=== PATIENT | male | born 1985 ===

== ENCOUNTER 2023-05-15 09:29 | Emergency (ER) | payer OTHER, SELFPAY ==
[2023-05-15 09:41] VITALS: BP 125/80; PULSE 78; RESP 19; TEMP 36.6; O2SAT 98; BMI 35.8
[2023-05-15 10:35] LABS: Anion Gap 14 (12-20); Blood Urea Nitrogen 14 mg/dL (9-16); Carbon Dioxide 25 mmol/L (22-29); Chloride 103 mmol/L (96-108); Estimated Glomerular Filt Rate > 60; Glucose Random 165 mg/dL (60-115); Potassium 3.8 mmol/L (3.3-5.1); Sodium 138 mmol/L (135-145)
--- NOTE | 2023-05-15 11:36 | ED.GENADULT ---
HPI - General Adult General Chief complaint: General Medical Stated complaint: Dizzy Weak L Arm Tingling Time Seen by Provider: 05/15/23 11:36 Source: patient Mode of arrival: ambulatory Limitations: no limitations History of Present Illness HPI narrative: 38 yo male with history of DM (A1c 6%), VERN on CPAP QHS, who presents to the ER for evaluation of lightheadedness and dizziness that started this morning. He states is it worse with position changes and he felt like he was going to pass out this morning. He also reports 1 episode of nausea and vomiting after eating his breakfast. He reports left sided ear fullness and pressure along with left sided sinus pressure today as well. He denies any fever, chills, abdominal pain, SOB or chest pain. No known sick contacts. He states about 1 week ago he developed pain in the upper left arm that has since changed to a heavy sensation. No weakness or numbness. No involvement of the LLE, or upper extremities. No headache, vision changes, gait abnormalities. MD complaint: lightheadedness Onset (ago): hour(s) Severity: moderate Pain Consistency: intermittent Relieving factors: rest Exacerbating factors: movement Associated symptoms: loss of appetite and malaise Treatments prior to arrival: none Related Data Allergies Allergy/AdvReac Type Severity Reaction Status Date / Time Penicillins [PENICILLINS] Allergy Mild UNSURE Verified 05/15/23 09:41 Review of Systems Review of Systems: Yes all other systems are reviewed and are negative [facility] Social History Social History Advance Directives: No Physical Exam ED Vital Signs: Vital Signs - 24 hr 05/15/23 09:41 05/15/23 11:42 05/15/23 11:42 Temperature 98 F Pulse Rate 78 74 78 Respiratory Rate 19 Blood Pressure 125/80 126/74 134/85 Pulse Oximetry 98 Oxygen Delivery Method Room Air 05/15/23 11:43 Temperature Pulse Rate 81 Respiratory Rate Blood Pressure 135/87 Pulse Oximetry Oxygen Delivery Method BMI result Body Mass Index 35.8 Appearance: Alert. Oriented X3. No acute distress. Head: normocephalic, atraumatic. Eyes: Pupils equal, round and reactive to light. ENT: Pharynx normal. No tonsillar swelling or exudate. Normal inspection of bilateral EAC and TMs. Neck: Normal inspection. Neck supple. CVS: Normal heart rate and rhythm. Pulses normal. Respiratory: No respiratory distress. Breath sounds normal. Abdomen: Soft and nontender. +BS x4 Skin: Skin warm and dry. Normal skin color. Normal skin turgor. No rashes. Extremities: No lower extremity edema. No joint swelling. Neuro/psych: Oriented X 3. No motor deficit. No sensory deficit. CN II-XII intact. Normal speech and cognition. Stady gait. Strength is equal and symmetrical throughout. Medical Decision Making Medical Decision Making [facility] Narrative: 38 yo diabetic male presenting with lightheadedness that started today. Has multiple other complaints as well including LUE heaviness x1 week. Neuro exam is nonfocal. Orthostatic VS negative. Lab workup, EKG all reassuring. Viral PCR negative. He reports postprandial nausea is chronic, ?gastroparesis. No evidence of acute bacterial infection. At this time comfortable w/ discharge home. he has appointment w/ endo next week. Differential Diagnosis Differential Diagnoses: The differential diagnosis associated with the presentation includes dehydration, viral illness, hyperglycemia, hypoglycemia, orthostatic hypotension, less likely TIA/CVA Lab Data [facility] Lab Attestation statement: I reviewed the patient's lab results. unremarkable 05/15/23 10:16 05/15/23 10:16 Labs: Lab Results 05/15/23 Range/Units 10:16 WBC 8.9 (4.8-10.8) X10*3/uL RBC 5.45 (4.60-5.80) X10*6/uL Hgb 15.3 (14.0-18.0) g/dl Hct 46.4 (42.0-52.0) % MCV 85.1 (80.0-98.0) fL MCH 28.1 (27.0-33.0) pg MCHC 33.0 (31.0-36.0) g/dl RDW 13.0 (11.0-16.0) % Plt Count 334 (160-400) X10*3/uL MPV 8.4 L (9.4-12.4) fL Immature Gran % (Auto) 0.2 (0.0-0.4) % Neut % (Auto) 67.1 (45-73) % Lymph % (Auto) 24.1 (20-40) % Wagoner % (Auto) 7.0 (2-11) % Eos % (Auto) 1.1 (0-4) % Baso % (Auto) 0.5 (0-2) % Lymph # (Auto) 2.1 (1.2-4.9) X10*3/uL Wagoner # (Auto) 0.6 (0.1-1.2) X10*3/uL Eos # (Auto) 0.1 (0.0-0.4) X10*3/uL Baso # (Auto) 0.0 (0.0-0.2) X10*3/uL Abs Immat Gran (auto) 0.02 (0.00-0.03) X10*3/uL Absolute Neuts (auto) 6.0 (2.0-8.3) x10*3/uL Absolute Nucleated RBC 0.000 (0.0-0.012) X10*3/uL Nucleated RBC % (auto) 0.0 (0.0-0.2) /100WBC Sodium 138 (135-145) mmol/L Potassium 3.8 (3.3-5.1) mmol/L Chloride 103 (96-108) mmol/L Carbon Dioxide 25 (22-29) mmol/L Anion Gap 14 (12-20) BUN 14 (9-16) mg/dL Creatinine 0.84 (0.5-1.4) mg/dL Estim Creat Clear Calc 135.0 Estimated GFR > 60 Random Glucose 165 H (60-115) mg/dL Calcium 10.0 (8.4-10.2) mg/dL Troponin I High Sens < 2.7 (<3.5-35.0) ng/L Influenza Type A (PCR) NEGATIVE (Negative) Influenza Type B (PCR) NEGATIVE (Negative) RSV RNA Qual (PCR) NEGATIVE (Negative) SARS-CoV-2 RNA (RT-PCR) NEGATIVE (Negative) Independent Interpretation I performed an independent interpretation of an: EKG Interpretation: EKG with normal sinus rhythm, ventricular rate 85 beats per minute, normal QTC, normal AK interval, no ST segment elevations or depressions Independent Historian Clinical information obtained from an independent historian. History obtained from or confirmed by: Spouse Chronic Conditions Patient?s care impacted by: Diabetes Critical Care Time Critical Care Time Critical Care Time: No Discharge Plan Discharge Clinical Impression: Lightheadedness Patient Disposition: Home, Self-Care Instructions: Lightheadedness (ED) Additional Instructions: Your lab workup today was reassuring You tested negative for COVID, Flu and RSV Your EKG and vital signs were normal Your exam was normal You may be starting to come down with a viral illness. Recommend rest, drink plenty of fluids. When changing positions, do so slowly. Follow up with your doctor and Endocrine as scheduled. If you develop new or worsening symptoms call 911 or come back to the ER for further evaluation. Referrals: Marilu Hinton MD [Primary Care Provider] - Stand Alone Forms: Work/School Release Interventions: ED Discharge Assessment Last Done: 05/15/23 12:24 Discharge Date/Time: 05/15/23 12:24
[2023-05-15 11:42] VITALS: BP 126/74; BP 134/85; PULSE 74; PULSE 78
[2023-05-15 11:43] VITALS: BP 135/87; PULSE 81
== END 2023-05-15 12:24 | disposition home or self-care (01) ==
PROVIDERS: Emergency Provider Emergency Medicine Emergency Medical Services; PCP Internal Medicine
DX: R42 Dizziness and giddiness (principal); G47.33 Obstructive sleep apnea (adult) (pediatric); Z20.822 Contact with and (suspected) exposure to COVID-19; Z20.828 Contact with and (suspected) exposure to other viral communicable diseases; Z79.899 Other long term (current) drug therapy
CPT/HCPCS: 0241U; 36415; 80048; 84484; 85025; 93005; 99283

== ENCOUNTER 2023-05-21 10:46 | Outpatient (AMB) | payer OTHER, SELFPAY ==
[2023-05-21 10:49] VITALS: BMI 36.2
--- NOTE | 2023-05-21 10:49 | MHC.PC.OV ---
Vital Signs 05/21/23 10:49 Height 5 ft 6 in Weight 224 lb 4 oz BMI 36.2 Intake Visit Reasons: [employer]-DM Intake Note: Patient is a new patient here to establish care for DM, sleep apnea, obesity. Transferring care from [facility]. Medical records have been requested today. 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 Patient has a past medical history significant for type 2 diabetes, Sleep apnea, seasonal allergies. Previous PCP was in [place] Was recently seen at the [facility] for lightheadedness and nausea. He did report having some presyncopal episodes. Workup with EKG and labs, viral serology were unremarkable. He does report having GI issues with abdominal bloating and gas. Does report intermittent right upper quadrant abdominal pain. .. Chronic allergies: Continues to use [id number] allergy medication and nasal sprays much relief. He feels he has an inner ear issue. Was on allergy injections in the past and was doing well. Has lost follow-up with his ENT specialist and stop doing injections. Type 2 diabetes: Patient continues on metformin a 1000 b.i.d. from previous PCP. Today's A1c is 7.2. He does report not taking metformin at times as he feels he does not needed. He reports trying to eat much more healthy. PLAN: He is willing to start Ozempic weekly . Vaccine: UTD with Flu , UTD with COVID vaccine. [facility] Family History Father No problems noted. Mother Asthma Fibromyalgia Anxiety and depression Social History (Updated 05/21/23 @ 11:15 by Juancarlos Meyer PA-C) Housing: House Alcohol intake: current Alcohol intake frequency: holidays/special occasions only Patient Tobacco Use Status: Never used Tobacco e-Cigarette/Vaping Use: Never Used service: No Current occupational status: employed Current occupation: [employer] Cognitive needs: No Hearing needs: No Vision needs: No Questionnaire PHQ-9 Over the last 2 weeks, how often have you been bothered by any of the following problems? 1. Little interest or pleasure in doing things: several days 2. Feeling down, depressed, or hopeless: several days 3. Trouble falling or staying asleep, or sleeping too much: nearly every day 4. Feeling tired or having little energy: nearly every day 5. Poor appetite or overeating: nearly every day 6. Feeling bad about yourself - or that you are a failure or have let yourself or your family down: nearly every day 7. Trouble concentrating on things, such as reading the newspaper or watching television: not at all 8. Moving or speaking so slowly that other people could have noticed. Or the opposite - being so fidgety or restless that you have been moving around a lot more than usual: more than half the days 9. Thoughts that you would be better off or of hurting yourself in some way: not at all Total score: 16 Depression Screening Interpretation: Positive Depression Screening Follow-up: Existing condition Depression Screening Done: Yes 29152 - PHQ-9 Billing: Yes Source: Developed by Drs. Neville Augustin, Iram Hillman, Josiah Rodriguez and colleagues, with an educational ysabel from [employer]. Thrive Questionnaire Date Thrive assessed: 05/21/23 I am a: Patient What is your living situation today?: I have a steady place to live Within the past 12 months, did the food you bought not last and you didn't have the money to get more?: Never true Within the past 12 months, did you worry whether your food would run out before you got money to buy more?: Never true Do you have trouble paying for medicines?: No Do you have trouble getting transportation to medical appointments?: No Do you have trouble paying your heating and electricity bill?: No Do you have trouble taking care of your child, family member or friend?: No Do you have trouble with day-to-day activities such as bathing, preparing meals, shopping, managing finances, etc.?: No Are you currently unemployed and looking for a job?: No Are you interested in more education?: No Please select the resources that you would like help with: None Currently or been in a relationship where the following occur: no concerns reported AUDIT C Alcohol Use Questionnaire (AUDIT-C) 1. How often do you have a drink containing alcohol?: Monthly or less 2. How many drinks containing alcohol do you have on a typical day when you are drinking?: 5 or 6 3. How often do you have six or more drinks on one occasion?: Less than monthly Total Score: 4 RENAY-7 AMB Questionnaire RENAY-7 Date RENAY - 7 assessed: 05/21/23 Feeling nervous, anxious, or on edge: 3 = Nearly every day Not being able to stop or control worryin = Nearly every day Worrying too much about different things: 3 = Nearly every day Trouble relaxin = Not at all Being so restless that it is hard to sit still: 3 = Nearly every day Becoming easily annoyed or irritable: 2 = More than half the days Feeling afraid as if something awful might happen: 1 = Several days Total RENAY-7 score (0-4 normal; 5-9 mild; 10-14 moderate; 15-21 severe): 15 Source: Developed by Drs. Neville Augustin, Iram Hillman, Josiah Rodriguez and colleagues, with an educational ysabel from [employer]. RENAY-7 Assessment Billing RENAY-7 Assessment Tool: RENAY-7 Assessment 28997 Review of Systems Const Denies headache(s) Eyes Denies loss of vision ENT Denies vertigo, Denies dizziness, Denies headache(s) and Denies sore throat Card Denies chest pain, Denies leg edema and Denies lightheadedness Resp Denies cough, Denies hemoptysis and Denies wheezing GI Denies abdominal pain, Denies melena, Denies constipation, Denies diarrhea and Denies vomiting Denies dysuria, Denies urinary frequency and Denies urinary urgency Musc Denies arthralgias, Denies joint swelling, Denies numbness and Denies tingling Neuro Denies Abnormal speech present, Denies behavioral changes, Denies vertigo, Denies dizziness, Denies headache(s), Denies loss of vision, Denies memory loss, Denies numbness and Denies tingling Psych Denies anxiety, Denies behavioral changes, Denies depression, Denies memory loss and Denies panic attacks Quirino/Lymph Denies easy bleeding and Denies easy bruising Aller/Immun Denies wheezing Physical exam (Primary Care) BMI result Body Mass Index 36.2 Tobacco/Smoking Status: Tobacco use Status Tobacco use date assessed 05/21/23 05/21/23 11:05 Patient Tobacco Use Status Never used Tobacco 05/21/23 11:15 e-Cigarette/Vaping Use Never Used 05/21/23 11:15 PHQ-9: PHQ-9 Score PHQ-9: Total score 16 05/21/23 11:52 Depression Screening Interpretation: Positive Depression Screening Follow-up: Existing condition Thrive Assessment: Date of Thrive Assessment Date Thrive assessed 05/21/23 05/21/23 10:56 Currently or been in a relationship where the following occur: no concerns reported Const General: healthy appearing, no acute distress, alert and awake Nutritional Appearance: well nourished Orientation/consciousness: oriented to person, oriented to place and oriented to time HENMT Ears: TM's normal bilaterally General nose exam: Normal nasal mucous membranes and turbinates present Eyes Conjunctivae: conjunctivae normal Sclerae: sclerae normal Pupils: Equal, round and reactive pupils present Neck Neck: Yes no lymphadenopathy and Yes no JVD Thyroid: Thyroid normal Carotids: no bruits Resp Effort & Inspection: normal respiratory effort and not tachypneic Auscultation: no crackles, no rales, no rhonchi and no wheezes Cardio Rate: regular rate Rhythm: regular rhythm Heart sounds: no murmurs and normal S1 and S2 GI Palpation (GI): Soft to palpation, nontender, no hepatomegaly and no splenomegaly Auscultation: normal bowel sounds Skin General skin exam: no rashes or lesions noted and dry skin Neuro General: oriented to person, oriented to place and oriented to time Cranial nerves: Yes Equal, round and reactive pupils present Speech: No Abnormal speech present Gait exam (Neuro): Normal gait present Motor exam (neuro): no tremor noted Extrem Right upper extremity: full ROM Left upper extremity: full ROM Right lower extremity: full ROM; no edema Left lower extremity: full ROM; no edema Psych Mental Status: mental status grossly normal Speech and movement: Normal speech and movement present Affect: normal affect Attitude: cooperative Thought process: Normal thought process present Office Procedures Flu Questionnaire Does the patient have a severe egg allergy?: No Does the patient have severe life threatening allergies?: No Does the patient have a fever or illness today?: No Has the patient ever had Guillain-Sidney Syndrome?: No Has the patient ever had any past reaction to a flu shot?: No Results AMB Hemoglobin A1c AMB Hemoglobin A1c 7.2 % Last Edit by ROSCOE Hay on 05/21/23 11:19 Immunizations flu vacc [id number] 6mos up(PF) 60 mcg(15 mcgx4)/0.5 mL IM syringe Performing Provider: Juancarlos Meyer PA-C [facility] Administered by: ROSCOE Hay on 05/21/23 11:11 Dose Route Admin Location Dispensed Lot Number Expiration Date NDC Outreach Clinician 0.5 mL IM Left Deltoid 0.5 mL [id number] 02/02/24 22025-198-37 Nabto VIS Given Date VIS Provided VIS Publication Date 05/21/23 Single Vaccine 21 Eligibility Eligibility Date Funding Source Not VFC Eligible 05/21/23 Private Results Reviewed Results Reviewed: Laboratory Last Values Hgb A1c (Clinic) 7.2 % (4.0-6.0) H 05/21/23 11:12 Assessment and Plan Assessment & Plan (1) Type 2 diabetes mellitus: Code(s): E11.9 - Type 2 diabetes mellitus without complications Qualifiers: Diabetes mellitus complication status: with hyperglycemia Diabetes mellitus watermelon inspector insulin use: without halfway use Qualified Code(s): E11.65 - Type 2 diabetes mellitus with hyperglycemia Plan: Patient's type 2 diabetes suboptimally controlled with A1c today is 7.2. He is willing to transition to Ozempic weekly. He feels metformin may be causing him some side effect. Goal A1c is to be below 7.0 (2) Obese: Code(s): E66.9 - Obesity, unspecified Qualifiers: Body mass index: BMI 36.0-36.9 Obesity classification: adult class 2 (BMI 35 - 39.9) Obesity type: due to excess calories Serious obesity comorbidity presence: without serious comorbidity Qualified Code(s): E66.09 - Other obesity due to excess calories; Z68.36 - Body mass index [BMI] 36.0-36.9, adult Plan: Patient does understand his BMI is over 30 will work on being more physically active and adapting to better eating habits to reduce his weight. (3) Allergic rhinitis: Code(s): J30.9 - Allergic rhinitis, unspecified Qualifiers: Allergic rhinitis seasonality: unspecified Allergic rhinitis trigger: other Qualified Code(s): J30.89 - Other allergic rhinitis Plan: Patient reports often having signs symptoms of allergies. He reports his left ear often feels clogged. He was on allergy injections in the past through an ENT specialist. He would like to reestablish care with ENT specialty. Will restart him on allergy medication daily for his symptoms. (4) Eustachian tube disorder: Code(s): H69.90 - Unspecified Eustachian tube disorder, unspecified ear Qualifiers: Laterality: left Qualified Code(s): H69.92 - Unspecified Eustachian tube disorder, left ear (5) RUQ abdominal pain: Code(s): R10.11 - Right upper quadrant pain Plan: Reports intermittent right upper quadrant and epigastric pain. Does often feel bloated and has gas. Has been using vjld-dwa-rlzconi gas medication. Will supply patient with PPI therapy as his symptoms could be from gastritis. Will send for ultrasound of abdomen to evaluate his gallbladder. (6) Thoracic spine pain: Code(s): M54.6 - Pain in thoracic spine Plan: Reports having some right upper flank and thoracic spine pain. Attributes this to his work at times. Will get x-ray of thoracic spine to evaluate for any arthritis. (7) MDD (major depressive disorder), recurrent episode, moderate: Code(s): F33.1 - Major depressive disorder, recurrent, moderate Plan: Patient's PHQ-9 score positive for moderate depression. Did not formally discuss depression at today's visit. Will have office reach out and ask if he is interested in mental health therapy. (8) RENAY (generalized anxiety disorder): Code(s): F41.1 - Generalized anxiety disorder Plan: Patient's RENAY-7 score positive for moderate anxiety. Orders: Orders Influenza [id number] Immunization Today Z23 - Encounter for immunization Comprehensive [place]. Panel Fast Today E11.65 - Type 2 diabetes mellitus with hyperglycemia AMB Hemoglobin A1c 05/20/23 Z13.1 - Encounter for screening for diabetes mellitus Complete Blood Count no Diff Today E11.65 - Type 2 diabetes mellitus with hyperglycemia Lipid Panel Today E11.65 - Type 2 diabetes mellitus with hyperglycemia US abdomen complete Today R10.11 - Right upper quadrant pain XR thoracic spine 2V Today M54.6 - Pain in thoracic spine Referrals Ear/Nose/Throat Referral J30.89 - Other allergic rhinitis Medications: New semaglutide (Ozempic) for 4 weeks 0.25 mg (0.368 mL) subcut QWEEK 4 weeks 3 mL 1RF E11.65 - Type 2 diabetes mellitus with hyperglycemia omeprazole 20 mg PO DAILY 30 days 30 caps 2RF K21.9 - Gastro-esophageal reflux disease without esophagitis, R10.11 - Right upper quadrant pain montelukast (Singulair) 10 mg PO DAILY 90 days 90 tabs 1RF J30.89 - Other allergic rhinitis Coding Level of Care Code New Pt Level 4 (51392) Diagnoses Type 2 diabetes mellitus with hyperglycemia, without long-term current use of insulin E11.65 Diabetes mellitus complication status: with hyperglycemia Diabetes mellitus watermelon inspector insulin use: without halfway use Class 2 obesity due to excess calories without serious comorbidity with body mass index (BMI) of 36.0 to 36.9 in adult E66.09; Z68.36 Body mass index: BMI 36.0-36.9 Obesity classification: adult class 2 (BMI 35 - 39.9) Obesity type: due to excess calories Serious obesity comorbidity presence: without serious comorbidity Allergic rhinitis due to other allergic trigger, unspecified seasonality J30.89 Allergic rhinitis seasonality: unspecified Allergic rhinitis trigger: other Disorder of left eustachian tube H69.92 Laterality: left RUQ abdominal pain R10.11 Thoracic spine pain M54.6 MDD (major depressive disorder), recurrent episode, moderate F33.1 RENAY (generalized anxiety disorder) F41.1 Additional Codes RENAY-7 Assessment Billing - RENAY-7 Assessment Tool: RENAY-7 Assessment [id number] ([id number])
== END 2023-05-21 11:41 | disposition home or self-care (01) ==
PROVIDERS: PCP Physician Assistant; Visit Provider Physician Assistant
DX: E11.65 Type 2 diabetes mellitus with hyperglycemia (principal); F33.1 Major depressive disorder, recurrent, moderate; E66.09 Other obesity due to excess calories; Z68.36 Body mass index [BMI] 36.0-36.9, adult; Z23 Encounter for immunization; J30.89 Other allergic rhinitis; H69.92 Unspecified Eustachian tube disorder, left ear; R10.11 Right upper quadrant pain; M54.6 Pain in thoracic spine; F41.1 Generalized anxiety disorder
CPT/HCPCS: 83036; 90471; 90686; 96127; 99204

== ENCOUNTER 2023-05-23 08:43 | Outpatient (REF) | payer OTHER, SELFPAY ==
--- NOTE | ~2023-05-23 | XR_ITS ---
EXAMINATION: XR THORACOLUMBAR SPINE CLINICAL INFORMATION: Pain in thoracic spine, mid thoracic spine pain COMPARISON: None available. TECHNIQUE: 3 views of the thoracic spine. Visualization limited due to body habitus. FINDINGS: Mild multilevel degenerative changes in the thoracic spine. No gross thoracic vertebral body compression fractures are visualized, although visualization particularly of the upper thoracic spine, limited due to body habitus. Degenerative changes on very limited imaging of the lower cervical spine. XR/XR thoracic spine 2V IMPRESSION: Mild multilevel degenerative changes in the thoracic spine. No gross thoracic vertebral body compression fractures are visualized, although visualization particularly of the upper thoracic spine, limited due to body habitus.
== END 2023-05-23 08:44 | disposition home or self-care (01) ==
LOC: HO.XRAY 08:43
PROVIDERS: PCP Physician Assistant; Visit Provider Physician Assistant
DX: M54.6 Pain in thoracic spine (principal)
CPT/HCPCS: 72070

== ENCOUNTER 2023-06-18 08:58 | Outpatient (REF) | payer OTHER, SELFPAY ==
--- NOTE | ~2023-06-18 | US_ITS ---
EXAMINATION: US ABDOMEN COMPLETE CLINICAL INFORMATION: Right upper quadrant pain. COMPARISON: None available. TECHNIQUE: Real-time imaging of the abdominal viscera. FINDINGS: PANCREAS: Pancreatic head and tail are poorly seen, but ABDOMINAL AORTA: Proximal and distal aorta are unremarkable. Mid aorta is obscured. INFERIOR VENA CAVA: Visualized portions are normal. LIVER: The liver is normal in size. The liver contour is normal. Diffuse increased echogenicity to the liver parenchyma with focal fatty sparing along the gallbladder fossa. No focal hepatic lesion. There is no intrahepatic biliary duct dilatation seen. GALLBLADDER: The gallbladder is physiologically distended without evidence of stones, sludge, wall thickening or pericholecystic fluid. 0.4 x 0.5 x 0.4 cm nonmobile, nonshadowing gallbladder wall echogenicity identified within the gallbladder lumen on supine imaging. COMMON BILE DUCT: Normal in caliber measuring 0.4 cm in diameter. RIGHT KIDNEY: Normal. No hydronephrosis. No renal calculi or focal parenchymal lesions. The kidney measures 11.2 cm in maximum dimension. LEFT KIDNEY: No hydronephrosis. No renal calculi or focal parenchymal lesions. The kidney measures 11.5 cm in maximum dimension. Hyperechoic focus lower pole likely calcified vessel. SPLEEN: Normal. The spleen measures 11.1 cm in maximum dimension. 10.2 x 1.2 x 1.7 cm splenule. FREE FLUID: None. US/US abdomen complete IMPRESSION: Study limitations including pancreas and aorta. Should either or both be of clinical concern, consider other imaging modality such as CT. Hepatic steatosis. 5 mm gallbladder polyp.
== END 2023-06-18 08:59 | disposition home or self-care (01) ==
LOC: HO.US 08:58
PROVIDERS: PCP Physician Assistant; Visit Provider Physician Assistant
DX: R10.11 Right upper quadrant pain (principal)
CPT/HCPCS: 76700

== ENCOUNTER 2023-06-25 15:15 | Outpatient (AMB) | payer OTHER, SELFPAY ==
--- NOTE | 2023-06-25 15:18 | MHC.OFFVIS ---
Intake Vital Signs 06/25/23 15:26 Height 5 ft 6 in Weight 220 lb BMI 35.5 BP 136/87 Blood Pressure Location Rt brachial Position Sitting Pulse 87 Intake Visit Reasons: RUQ pain Intake Note: Patient here for pain on RUQ. Feels pressure when sitting down with certain positions. Denies vomiting, diarrhea, constipation. Recent Abd US on 06-18-23. Taking otc pain meds. 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 Patient presents with a longstanding history of dyspeptic symptoms. This consisted epigastric upper abdominal discomfort sometimes related to diet. He sometimes has associated nausea vomiting with his attacks. He does not have right upper quadrant pain radiating around to his back per se. He does not acknowledge any true fatty food intolerance. Workup including sonogram demonstrated a single gallbladder polyp 5 mm in size. No cholelithiasis. No evidence of acute cholecystitis. Otherwise regular bowel habits. No other significant lower GI issues or complaints. Chart was reviewed patient evaluated. [facility] Family History Father No problems noted. Mother Asthma Fibromyalgia Anxiety and depression Housing: House Alcohol intake: current Alcohol intake frequency: holidays/special occasions only Patient Tobacco Use Status: Never used Tobacco e-Cigarette/Vaping Use: Never Used service: No Current occupational status: employed Current occupation: [employer] Cognitive needs: No Hearing needs: No Vision needs: No Physical Exam Vital Signs: Last Vital Signs Pulse 87 06/25/23 15:26 BP 136/87 06/25/23 15:26 BMI result Body Mass Index 35.5 Eyes Other: Anicteric GI Other: Abdomen soft, corpulent, benign. Assessment & Plan Assessment & Plan (1) Gallbladder polyp: Code(s): K82.4 - Cholesterolosis of gallbladder Plan: From a surgical perspective, this isolated small gallbladder polyp is unlikely root causing the patient's symptoms. In the meantime, I will arrange for 6 month surveillance sonogram for a polyp. Patient also be scheduled for for GI consultation regarding his chronic dyspepsia. All questions were. Patient will follow-up with me as directed above or p.r.n.. Orders: Orders US abdomen limited 6 Months K82.4 - Cholesterolosis of gallbladder Coding Level of Care Code New Pt Level 4 (21709) Diagnoses Gallbladder polyp K82.4
[2023-06-25 15:26] VITALS: BP 136/87; PULSE 87; BMI 35.5
== END 2023-06-25 15:35 | disposition home or self-care (01) ==
PROVIDERS: PCP Physician Assistant; Referring Provider Physician Assistant; Visit Provider Surgery
DX: K82.4 Cholesterolosis of gallbladder (principal)
CPT/HCPCS: 99204

== ENCOUNTER → 2023-06-25 15:15 | Outpatient (BNVA) | payer OTHER, SELFPAY | PROVIDERS: PCP Physician Assistant; Referring Provider Physician Assistant; Visit Provider Surgery ==

== ENCOUNTER 2023-08-21 09:28 | Outpatient (AMB) | payer OTHER, SELFPAY ==
[2023-08-21 09:54] VITALS: BP 114/82; PULSE 68; O2SAT 96; BMI 35.7
--- NOTE | 2023-08-21 09:54 | MHC.PC.OV ---
Vital Signs 08/21/23 09:54 Height 5 ft 6 in Weight 221 lb 6 oz BMI 35.7 BP 114/82 Blood Pressure Location Lt brachial Position Sitting Pulse 68 Pulse Source Pulse Oximeter Pulse Oximetry (%) 96 Oxygen Delivery Method Room Air Intake Visit Reasons: Annual Exam Intake Note: Patient is here today for a physical. 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 Patient has a past medical history significant for type 2 diabetes, Sleep apnea, seasonal allergies. Concern--> has developed a rash over the left side of his neck. Chronic abdominal pain/ dyspepsia: Has gotten ultrasound of abdomen that did show a 5 mm gallbladder polyp. He was then referred to general surgeon whom does not believe that this is causing his abdominal pain. He was advised to follow with GI for his dyspepsia. He does report that omeprazole is helpful on his upper GI symptoms. .. Chronic allergies: Continues to use [id number] allergy medication and nasal sprays much relief. He feels he has an inner ear issue. He has reestablish care with his ENT and has been started back on allergy injections. Of note does have obstructive sleep apnea and does use a CPAP machine on a nightly basis. He has been told his tonsils were enlarged which may be the cause of some of his obstructive sleep apnea. He is interested in ENT surgeon evaluation for possible elective tonsillectomy. .. Type 2 diabetes: Today's A1c is 7.1 from 7.2. He has been on Ozempic 0.25 mg weekly. PLAN: Will increase to 0.5 mg weekly.. He does report not taking metformin at times as he feels he does not needed. He reports trying to eat much more healthy. Vaccine: UTD with Flu , UTD with COVID vaccine,recieved Tdap in 2020, needs PCV. [facility] Family History Father No problems noted. Mother Asthma Fibromyalgia Anxiety and depression Social History (Updated 08/21/23 @ 10:05 by Juancarlos Meyer PA-C) Housing: House Alcohol intake: current Alcohol intake frequency: holidays/special occasions only Patient Tobacco Use Status: Never used Tobacco e-Cigarette/Vaping Use: Never Used service: No Current occupational status: employed Current occupation: [employer] Cognitive needs: No Hearing needs: No Vision needs: No Questionnaire PHQ-9 Over the last 2 weeks, how often have you been bothered by any of the following problems? 1. Little interest or pleasure in doing things: not at all 2. Feeling down, depressed, or hopeless: not at all 3. Trouble falling or staying asleep, or sleeping too much: not at all 4. Feeling tired or having little energy: not at all 5. Poor appetite or overeating: not at all 6. Feeling bad about yourself - or that you are a failure or have let yourself or your family down: not at all 7. Trouble concentrating on things, such as reading the newspaper or watching television: not at all 8. Moving or speaking so slowly that other people could have noticed. Or the opposite - being so fidgety or restless that you have been moving around a lot more than usual: not at all 9. Thoughts that you would be better off or of hurting yourself in some way: not at all Total score: 0 Depression Screening Interpretation: Negative Depression Screening Done: Yes 40328 - PHQ-9 Billing: Yes Source: Developed by Drs. Neville Augustin, Iram Hillman, Josiah Rodriguez and colleagues, with an educational ysabel from [employer]. Thrive Questionnaire Date Thrive assessed: 08/21/23 I am a: Patient What is your living situation today?: I have a steady place to live Within the past 12 months, did the food you bought not last and you didn't have the money to get more?: Never true Within the past 12 months, did you worry whether your food would run out before you got money to buy more?: Never true Do you have trouble paying for medicines?: No Do you have trouble getting transportation to medical appointments?: No Do you have trouble paying your heating and electricity bill?: No Do you have trouble taking care of your child, family member or friend?: No Do you have trouble with day-to-day activities such as bathing, preparing meals, shopping, managing finances, etc.?: No Are you currently unemployed and looking for a job?: No Are you interested in more education?: No Please select the resources that you would like help with: None AUDIT C Alcohol Use Questionnaire (AUDIT-C) 1. How often do you have a drink containing alcohol?: Monthly or less 2. How many drinks containing alcohol do you have on a typical day when you are drinking?: 1 or 2 3. How often do you have six or more drinks on one occasion?: Never Total Score: 1 RENAY-7 AMB Questionnaire RENAY-7 Date RENAY - 7 assessed: 08/21/23 Feeling nervous, anxious, or on edge: 0 = Not at all Not being able to stop or control worryin = Not at all Worrying too much about different things: 0 = Not at all Trouble relaxin = Not at all Being so restless that it is hard to sit still: 0 = Not at all Becoming easily annoyed or irritable: 0 = Not at all Feeling afraid as if something awful might happen: 0 = Not at all Total RENAY-7 score (0-4 normal; 5-9 mild; 10-14 moderate; 15-21 severe): 0 Source: Developed by Drs. Neville Augustin, Iram Hillman, Josiah Rodriguez and colleagues, with an educational ysabel from [employer]. RENAY-7 Assessment Billing RENAY-7 Assessment Tool: RENAY-7 Assessment 25732 Review of Systems Const Denies body aches, Denies chills, Denies excessive sweating, Denies fatigue, Denies fever(s) and Denies headache(s) Eyes Denies blurry vision ENT Denies dysphagia, Denies vertigo, Denies dizziness, Denies headache(s), Denies hearing loss and Denies tinnitus Card Denies chest pain, Denies chest pain with activity, Denies syncope, Denies irregular heart rhythm and Denies dyspnea Resp Denies chest congestion, Denies cough, Denies hemoptysis, Denies dyspnea and Denies wheezing GI Denies abdominal pain, Denies melena, Denies hematochezia, Denies coffee ground emesis, Denies dysphagia, Denies diarrhea, Denies nausea and Denies vomiting Denies difficulty urinating, Denies dysuria, Denies urinary frequency, Denies urinary hesitancy and Denies urinary urgency Musc Denies arthralgias, Denies limited range of motion, Denies muscle cramps and Denies muscle weakness Skin/Breast Denies rash and Denies skin ulcer Neuro Denies Abnormal speech present, Denies confusion, Denies vertigo, Denies dizziness, Denies syncope, Denies headache(s), Denies memory loss and Denies seizure-like activity Psych Denies anxiety, Denies confusion, Denies depression, Denies memory loss, Denies panic attacks and Denies paranoia Endo Denies excessive sweating, Denies fatigue, Denies flushing, Denies polydipsia and Denies polyuria Aller/Immun Denies wheezing Physical exam (Primary Care) Vital Signs: Last Vital Signs Pulse 68 08/21/23 09:54 BP 114/82 08/21/23 09:54 Pulse Ox 96 08/21/23 09:54 Oxygen Delivery Method Room Air 08/21/23 09:54 BMI result Body Mass Index 35.7 BMI Assessment/Plan discussion: High Tobacco/Smoking Status: Tobacco use Status Tobacco use date assessed 05/21/23 08/21/23 09:58 Patient Tobacco Use Status Never used Tobacco 08/21/23 10:05 e-Cigarette/Vaping Use Never Used 08/21/23 10:05 PHQ-9: PHQ-9 Score PHQ-9: Total score 0 08/21/23 11:23 Depression Screening Interpretation: Negative Thrive Assessment: Date of Thrive Assessment Date Thrive assessed 08/21/23 08/21/23 09:58 Const Other: Obese General: cooperative, comfortable, no acute distress, alert and awake; No confusion Orientation/consciousness: oriented to person, oriented to place, patient oriented x3 and No confusion HENMT Head: Yes normocephalic Ears: external ears normal and TM's normal bilaterally Face and sinus: No sinus tenderness Mouth: Normal oral and palatal mucosa present and tongue normal Teeth and gingiva: dentition normal and gingiva normal Throat: Yes posterior oropharynx normal, Yes tonsils normal and Yes uvula midline Eyes Conjunctivae: conjunctivae normal Sclerae: sclerae normal Pupils: Equal, round and reactive pupils present EOM: EOMs intact bilaterally Direct Ophthalmoscopy: No no photophobia Neck Neck: Yes no lymphadenopathy, No tender and Yes no JVD Thyroid: Thyroid normal Carotids: no bruits Chest Chest palpation & inspection: no tenderness Resp Effort & Inspection: normal respiratory effort, no audible wheezes, not labored and no stridor Auscultation: no crackles, no rales, no rhonchi and no wheezes Cardio Jugular venous distension: no JVD Rate: regular rate, not bradycardic and not tachycardic Rhythm: regular rhythm Bruits: no carotid bruits Peripheral pulses: Peripheral pulses 2+ throughout GI Inspection: Yes normal to inspection, No abdominal wall ecchymosis and No visible herniation Palpation (GI): Soft to palpation, nontender, no guarding, not rigid and No hepatosplenomegaly present Auscultation: normoactive bowel sounds General: Yes no CVA tenderness Back/Spine/Pelvis Back: no CVA tenderness and No back tenderness Cervical Spine: cervical ROM normal Thoracic/Lumbar Spine: thoracic and lumbar spine normal to inspection, straight leg raise negative bilaterally, No thoraco-lumbar ROM limited and No lumbar spinal tenderness Skin Lesions: no lesions Rashes: no rashes Wounds: no wounds Neuro General: oriented to person, oriented to place, patient oriented x3, CN's II-XI intact bilaterally and No confusion Cranial nerves: Yes Equal, round and reactive pupils present and Yes Normal accommodation reflex present Cognition (Neuro): normal cognition Speech: No Abnormal speech present Gait exam (Neuro): Normal gait present Motor exam (neuro): 5/5 motor strength present throughout Extrem Right upper extremity: full ROM; no cyanosis Left upper extremity: full ROM; no cyanosis Right lower extremity: no edema Left lower extremity: no edema Psych Appearance: grossly normal Mental Status: mental status grossly normal Affect: normal affect Attitude: cooperative Thought process: Normal thought process present Results AMB Hemoglobin A1c AMB Hemoglobin A1c 7.1 % Last Edit by ROSCOE Hay on 08/21/23 11:23 Results Reviewed Results Reviewed: Laboratory Last Values Hgb A1c (Clinic) 7.1 % (4.0-6.0) H 08/21/23 11:23 Assessment and Plan Assessment & Plan (1) Annual physical exam: Code(s): Z00.00 - Encounter for general adult medical examination without abnormal findings (2) Type 2 diabetes mellitus: Code(s): E11.9 - Type 2 diabetes mellitus without complications Qualifiers: Diabetes mellitus complication status: with hyperglycemia Diabetes mellitus intermediate insulin use: without 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 Will increase his Ozempic to 0.5 mg weekly. Will consider restarting low-dose metformin if A1c remains above 7.0 Goal A1c is to be below 7.0 (3) Obese: Code(s): E66.9 - Obesity, unspecified Qualifiers: Body mass index: BMI 36.0-36.9 Obesity classification: adult class 2 (BMI 35 - 39.9) Obesity type: due to excess calories Serious obesity comorbidity presence: without serious comorbidity Qualified Code(s): E66.09 - Other obesity due to excess calories; Z68.36 - Body mass index [BMI] 36.0-36.9, adult Plan: Patient does understand his BMI is over 30 will work on being more physically active and adapting to better eating habits to reduce his weight. (4) Allergic rhinitis: Code(s): J30.9 - Allergic rhinitis, unspecified Qualifiers: Allergic rhinitis seasonality: unspecified Allergic rhinitis trigger: other Qualified Code(s): J30.89 - Other allergic rhinitis Plan: Patient reports often having signs symptoms of allergies. He has restarted his allergy injections this week. (5) MDD (major depressive disorder), recurrent episode, moderate: Code(s): F33.1 - Major depressive disorder, recurrent, moderate Plan: Patient's PHQ-9 - 0 not interested in starting mental health medications. (6) RENAY (generalized anxiety disorder): Code(s): F41.1 - Generalized anxiety disorder Plan: Patient's RENAY-7 0 - Does have history of generalized anxiety disorder. Not interested in starting any medications at this time. (7) Acute dermatitis: Code(s): L30.9 - Dermatitis, unspecified Plan: Will supply patient with topical steroid for his acute dermatitis on his neck. (8) Enlarged tonsils: Code(s): J35.1 - Hypertrophy of tonsils Plan: Does have quite a large tonsils on physical exam. Does have obstructive sleep apnea to which he uses a CPAP machine on a nightly basis. He would like to be evaluated by ENT surgeon about a possible elective tonsillectomy to help his obstructive sleep apnea. Orders: Orders AMB Hemoglobin A1c Today E11.9 - Type 2 diabetes mellitus without complications Referrals Ear/Nose/Throat Referral J35.1 - Hypertrophy of tonsils Medications: New triamcinolone acetonide 0.5% 1 appl topical DAILY 15 days 15 grams 1RF L30.9 - Dermatitis, unspecified Changed From semaglutide (Ozempic) for 4 weeks 0.25 mg (0.368 mL) subcut QWEEK 4 weeks 3 mL 1RF E11.65 - Type 2 diabetes mellitus with hyperglycemia To semaglutide (Ozempic) 0.5 mg (0.736 mL) subcut QWEEK 4 weeks 3 mL 3RF E11.65 - Type 2 diabetes mellitus with hyperglycemia Coding Level of Care Code Est Pt Prev Care [id number]([id number]) Diagnoses Annual physical exam Z00.00 Type 2 diabetes mellitus with hyperglycemia, without long-term current use of insulin E11.65 Diabetes mellitus complication status: with hyperglycemia Diabetes mellitus lithograph press operator insulin use: without intermediate use Class 2 obesity due to excess calories without serious comorbidity with body mass index (BMI) of 36.0 to 36.9 in adult E66.09; Z68.36 Body mass index: BMI 36.0-36.9 Obesity classification: adult class 2 (BMI 35 - 39.9) Obesity type: due to excess calories Serious obesity comorbidity presence: without serious comorbidity Allergic rhinitis due to other allergic trigger, unspecified seasonality J30.89 Allergic rhinitis seasonality: unspecified Allergic rhinitis trigger: other MDD (major depressive disorder), recurrent episode, moderate F33.1 RENAY (generalized anxiety disorder) F41.1 Acute dermatitis L30.9 Enlarged tonsils J35.1 Additional Codes RENAY-7 Assessment Billing - RENAY-7 Assessment Tool: RENAY-7 Assessment [id number] ([id number])
== END 2023-08-21 10:26 | disposition home or self-care (01) ==
PROVIDERS: PCP Physician Assistant; Visit Provider Physician Assistant
DX: Z00.00 Encounter for general adult medical examination without abnormal findings (principal); E11.65 Type 2 diabetes mellitus with hyperglycemia; F33.1 Major depressive disorder, recurrent, moderate; E11.620 Type 2 diabetes mellitus with diabetic dermatitis; E66.09 Other obesity due to excess calories; Z68.36 Body mass index [BMI] 36.0-36.9, adult; J30.89 Other allergic rhinitis; F41.1 Generalized anxiety disorder; L30.9 Dermatitis, unspecified; J35.1 Hypertrophy of tonsils
CPT/HCPCS: 83036; 99395

== ENCOUNTER 2023-09-04 12:36 | Emergency (ER) | payer OTHER, SELFPAY ==
[2023-09-04 12:47] VITALS: BP 138/86; PULSE 96; RESP 20; TEMP 37.1; O2SAT 98; BMI 37.3
--- NOTE | 2023-09-04 13:02 | ED.GENADULT ---
HPI - General Adult General Chief complaint: Headache Stated complaint: Congestion Head Pressure Time Seen by Provider: 09/04/23 13:13 Source: patient Mode of arrival: ambulatory Limitations: no limitations History of Present Illness HPI narrative: Patient is a 38 yr old male with a past medical history of RENAY, MDD, GERD, obesity, DM2, back pain presenting with increased head pressure, fatigue, malaise, congestion, b/l ear discomfort X two weeks not improving. No sick contacts. Additionally reports increased burping seeing GI tomorrow reports to nursing. Denies visual changes, dizziness, weakness, fever, chills, cough, chest pain, SOB, runny nose, abdominal pain, n/v/d, constipation. NIHSS-0 Related Data Home Medications Medication Instructions Recorded Confirmed aspirin 500 mg tablet (Nell 500 mg PO Q4-6H PRN 05/21/23 08/21/23 Advanced) blood sugar diagnostic (FreeStyle 05/21/23 08/21/23 Lite Strips) Previous Rx's Medication Instructions Recorded montelukast 10 mg tablet 10 mg PO DAILY 90 days #90 tabs 05/21/23 (Singulair) omeprazole 20 mg capsule,delayed 20 mg PO DAILY 30 days #30 caps 08/16/23 release semaglutide 0.25 mg or 0.5 mg (2 0.5 mg (0.736 mL) subcut QWEEK 4 08/21/23 mg/3 mL) subcutaneous pen injector weeks #3 mL (Ozempic) triamcinolone acetonide 0.5 % 1 appl topical DAILY 15 days #15 08/21/23 topical cream grams doxycycline hyclate 100 mg capsule 100 mg PO BID 10 days #20 caps 09/04/23 ketorolac 10 mg tablet 10 mg PO TID PRN pain 5 days #15 09/04/23 tabs ondansetron 4 mg disintegrating 4 mg PO Q6H PRN nausea and 09/04/23 tablet vomiting #14 tabs prednisone 50 mg tablet 50 mg PO DAILY 5 days #5 tabs 09/04/23 Allergies Allergy/AdvReac Type Severity Reaction Status Date / Time Penicillins [PENICILLINS] Allergy Mild UNSURE Verified 09/04/23 12:50 Review of Systems Review of Systems: Constitutional : No Weight loss, No Fever, No Chills, + Fatigue, + Malaise ENT/Mouth : No sore throat, No Rhinorrhea, + congestion Eyes: No Eye Pain, No Swelling, No Redness Cardiovascular : No Chest Pain, No SOB, No Dyspnea on Exertion, No Orthopnea, No Edema, No Palpitations Respiratory : No Cough, No Sputum, No Wheezing Gastrointestinal : No Nausea, No Vomiting, No Diarrhea, No Constipation, No abdominal Pain, No Hematochezia, No Melena Genitourinary : No Dysuria, No Urinary Frequency, No Hematuria, Musculoskeletal : No joint pain, No Myalgias, No Joint Swelling Skin : No Skin Lesions, No rash Neuro : No Weakness, No Numbness, No Dizziness, + Headache Psych : No Anxiety/Panic, No Depression All other systems reviewed and are negative Yes all other systems are reviewed and are negative [facility] Past Medical History Attestation statement: The following information was validated with the patient. Source: old records reviewed and nursing notes reviewed Family History Family History Father No problems noted. Mother Asthma Fibromyalgia Anxiety and depression Social History Social History (Updated 08/21/23 @ 10:05 by Juancarlos Meyer PA-C) Housing: House Alcohol intake: current Alcohol intake frequency: holidays/special occasions only Patient Tobacco Use Status: Never used Tobacco e-Cigarette/Vaping Use: Never Used Advance Directives: No Advance Directives Information Provided: No service: No Current occupational status: employed Current occupation: [employer] Cognitive needs: No Hearing needs: No Vision needs: No Physical Exam ED Vital Signs: Vital Signs - 24 hr 09/04/23 12:47 Temperature 98.8 F Pulse Rate 96 Respiratory Rate 20 Blood Pressure 138/86 Pulse Oximetry 98 Oxygen Delivery Method Room Air BMI result Body Mass Index 37.3 vs wnl Appearance: Alert.? Oriented X3.? No acute distress.? Head: Normocephalic, atraumatic, no step-offs or deformities. Discomfort with palpation of facial sinuses and pressure to face with forward bending. Eyes: Pupils equal, round and reactive to light.? ENT: Pharynx normal.??External ears normal, TMs normal bilaterally and EAC's normal. No pain with manipulation of external ears bilaterally. No mastoid tenderness. Neck: Normal inspection.? Neck supple.? CVS: Normal heart rate and rhythm.? Pulses normal.? Respiratory: No respiratory distress.? Breath sounds normal.? Abdomen: Soft and nontender.? Skin: Skin warm and dry.? Normal skin color.? Normal skin turgor.? Extremities: No lower extremity edema.? No calf ttp. 5/5 strength to bilateral upper and lower extremities Back: No midline tenderness, no C-spine tenderness, full range of motion, no CVA tenderness bilaterally Neuro: Oriented X 3.? No motor deficit.? No sensory deficit. CN 2-12 intact . Normal [id number], kyrj-vf-smws steady tandem gait normal coordination Course Course Course Narrative: RmE: 38 yold male presents to the ED for head pressure for the past two weeks without Reevaluation(s) Reevaluation #1: Patient negative for influenza and COVID. Will treat for sinusitis. Educated patient on diagnosis and treatment plan, answered all question, patient verbalizes understanding. At this time patient will be discharged home, advised to return with new or worsening symptoms. Educated on worrisome signs and symptoms and when to return. At this time I feel comfortable discharge home. Time: 14:08 Reevaluation #2: Also reporting nausea, intermittent, seen GI for this tomorrow. No abdominal pain on exam. Will send Zofran. Medications Administered Discontinued Medications Generic Name Dose Route Start Last Admin Trade Name Omarq PRN Reason Stop Dose Admin Ketorolac Tromethamine 30 mg 09/04/23 14:00 09/04/23 14:14 Ketorolac Tromethamine 30 Mg/Ml Vial IM 09/04/23 14:01 30 mg ONCE ONE Administration Medical Decision Making Medical Decision Making [facility] Narrative: Patient is a 38 yr old male presents with viral symptoms/sinus symptoms for the past 2 weeks not improving. PE Discomfort with palpation of facial sinuses and pressure to face with forward bending. Most likely sinusitis versus viral illness. Unlikely meningitis, encephalitis, intracranial hemorrhage, stroke, posterior stroke. Unlikely pneumonia, PE or ACS. No complaints of abdominal pain or abdominal tenderness on exam unlikely acute abdomen. Patient will follow-up with GI for intermittent nausea and burps. Plan most likely sinusitis versus viral illness. Unlikely meningitis, encephalitis, intracranial hemorrhage, stroke, posterior stroke. Unlikely pneumonia, PE or ACS. Differential Diagnosis Differential Diagnoses: The differential diagnosis associated with the presentation includes Most likely sinusitis versus viral illness. Unlikely meningitis, encephalitis, intracranial hemorrhage, stroke, posterior stroke. Unlikely pneumonia, PE or ACS. No complaints of abdominal pain or abdominal tenderness on exam unlikely acute abdomen. Patient will follow-up with GI for intermittent nausea and burps. Admission/Observation Consideration of admission/observation: Escalation of care including admission/observation considered Lab Data MDM Lab Attestation statement: I reviewed the patient's lab results. Negative for COVID and influenza Labs: Lab Results 09/04/23 Range/Units 13:09 COVID-19 (BRANDON) Negative (Negative) COVID-19 Clin Com See Note Influenza Type A (FRANCISCO) Negative (Negative) Influenza Type B (FRANCISCO) Negative (Negative) Influenza A & B Note See Note External Record Review External record reviewed: Inpatient record, Office record, Outpatient record, Prior outpatient labs and Primary care record Chronic Conditions Patient?s care impacted by: Diabetes Core Measures AMI core measures followed: Yes Discharge Plan Discharge Clinical Impression: Sinusitis, Nausea Patient Disposition: Home, Self-Care Instructions: Sinusitis (ED) Additional Instructions: Take your medications as prescribed. If you were prescribed antibiotics today, it is important that you take your medication to their entirety, do not skip any doses, do not finish them early. Follow-up with your primary care provider this week. Return to the emergency department with new or worsening symptoms. Such as fevers, chills, chest pain, shortness of breath, nausea, vomiting, dizziness, headache, vision changes, lethargy In case of emergency call 911 Follow up with GI as planned. Janet for nausea has been sent to the pharmacy Prescriptions: New doxycycline hyclate 100 mg capsule 100 mg PO BID 10 Days Qty: 20 0RF ketorolac 10 mg tablet 10 mg PO TID PRN (Reason: pain) 5 Days Qty: 15 0RF prednisone 50 mg tablet 50 mg PO DAILY 5 Days Qty: 5 0RF ondansetron 4 mg tablet,disintegrating 4 mg PO Q6H PRN (Reason: nausea and vomiting) Qty: 14 0RF No Action omeprazole 20 mg capsule,delayed release(DR/EC) 20 mg PO DAILY 30 Days Qty: 30 2RF Nell Advanced 500 mg tablet 500 mg PO Q4-6H PRN (DME) FreeStyle Lite Strips Strip See Rx Instructions .Route Rx Instructions: As directed montelukast [Singulair] 10 mg tablet 10 mg PO DAILY 90 Days Qty: 90 1RF triamcinolone acetonide 0.5 % cream 1 appl topical DAILY 15 Days Qty: 15 1RF Ozempic 0.25 mg or 0.5 mg (2 mg/3 mL) pen injector 0.5 mg subcut QWEEK 28 Days Qty: 3 3RF Referrals: Juancarlos Meyer PA-C [Primary Care Provider] - 2 days Stand Alone Forms: Work/School Release Interventions: ED Discharge Assessment Last Done: 09/04/23 14:21 Discharge Date/Time: 09/04/23 14:21
[2023-09-04 13:40] LABS: IDNOW Serial# 08D9AD1C
[2023-09-04 13:41] LABS: COVID-19 Test Negative (Negative)
[2023-09-04 13:42] LABS: IDNOW Serial# 9DB6401D; Influenza A Negative (Negative); Influenza B2 Negative (Negative)
[2023-09-04] MEDS: Ketorolac Tromethamine 30 MG/ML VIAL IM (14:14)
--- NOTE | 2023-09-04 14:14 | PC.NURSE ---
ot medicated per order
== END 2023-09-04 14:21 | disposition home or self-care (01) ==
PROVIDERS: Physician Assistant; Emergency Provider Emergency Medicine Emergency Medical Services; PCP Physician Assistant
DX: J32.9 Chronic sinusitis, unspecified (principal); R11.0 Nausea; Z11.52 Encounter for screening for COVID-19; E11.9 Type 2 diabetes mellitus without complications; Z79.899 Other long term (current) drug therapy
CPT/HCPCS: 87502; 87635; 96372; 99283; 99284; J1885

== ENCOUNTER 2023-09-05 13:01 | Outpatient (AMB) | payer OTHER, SELFPAY ==
[2023-09-05 13:05] VITALS: BP 123/76; PULSE 85; BMI 37.0
--- NOTE | 2023-09-05 13:05 | MHC.OFFVIS ---
Intake Vital Signs 09/05/23 13:05 Height 5 ft 5 in Weight 222 lb 10.67 oz BMI 37.0 BP 123/76 Blood Pressure Location Lt brachial Position Sitting Pulse 85 Intake Visit Reasons: Dyspepsia Intake Note: Patient presents to in office visit today as a new patient for dyspepsia. CC:Patient c/o epiagastric and LUQ abdominal pain, a lot of gas, nausea, and vomiting. He also reports diarrhea because he is taking Predinsone. Actuarial Internship Required: No Accompanied by: Spouse Allergies Penicillins [PENICILLINS] Allergy (Mild, Verified 09/05/23 13:11) UNSURE Seasonal Allergies Allergy (Unknown, Verified 09/05/23 13:11) Unknown HPI Dyspepsia HPI Details 38 years old male with past medical history of depression, anxiety, GERD, allergic rhinitis, obesity, diabetes, gallbladder polyp is here today for initial consultation. Patient reports postprandial epigastric discomfort and bloating. Patient reports dyspepsia without dysphagia or odynophagia. Patient reports that he has been experiencing lot of gas. Patient feels like he is belching constantly. Occasional nausea without vomiting. Recently patient has been diagnosed with sinus infection and has been taking antibiotics and prednisone. Patient reports that he has been using the bathroom daily, however occasionally patient will feel like he is constipated and sometimes he will have loose stools. Patient denies any melena, hematochezia, unintentional weight loss or ribbon like stools. [facility] Surgical History No pertinent past surgical history Family History Father No problems noted. Mother Asthma Fibromyalgia Anxiety and depression Social History Housing: House Alcohol intake: current Alcohol intake frequency: holidays/special occasions only Patient Tobacco Use Status: Never used Tobacco e-Cigarette/Vaping Use: Never Used service: No Current occupational status: employed Current occupation: [employer] Cognitive needs: No Hearing needs: No Vision needs: No Review of Systems Const Denies weight gain and Denies weight loss ENT Reports no additional complaints, Denies dysphagia and Denies odynophagia Card Reports no additional complaints Resp Reports no additional complaints GI Denies abdominal pain, Denies belching, Denies melena, Reports bloating, Denies change in bowel habits, Reports constipation, Denies dysphagia, Denies excessive flatus, Reports dyspepsia, Reports heartburn, Denies diarrhea, Reports loose stools, Reports nausea, Denies odynophagia and Denies vomiting Reports no additional complaints Musc Reports no additional complaints Neuro Reports no additional complaints Psych Reports no additional complaints Endo Reports no additional complaints Physical Exam Vital Signs: Last Vital Signs Pulse 85 09/05/23 13:05 BP 123/76 09/05/23 13:05 BMI result Body Mass Index 37.0 Const General: healthy appearing, no acute distress and well developed Nutritional Appearance: well nourished Orientation/consciousness: patient oriented x3 Resp Effort & Inspection: normal respiratory effort, able to speak in complete sentences, no tracheal deviation and symmetric chest movement Auscultation: clear to auscultation bilaterally Cardio Rate: regular rate GI Inspection: Yes normal to inspection and No distended Palpation (GI): Soft to palpation, not firm, nontender and No hepatosplenomegaly present Auscultation: normal bowel sounds General: Yes no CVA tenderness Back/Spine/Pelvis Back: no CVA tenderness Skin General skin exam: elasticity normal, turgor normal and dry skin Neuro General: patient oriented x3 Psych Appearance: grossly normal Mental Status: mental status grossly normal Results Reviewed Results Reviewed: ABDOMINAL ULTRASOUND 06/18/2023 FINDINGS: PANCREAS: Pancreatic head and tail are poorly seen, but ABDOMINAL AORTA: Proximal and distal aorta are unremarkable. Mid aorta is obscured. INFERIOR VENA CAVA: Visualized portions are normal. LIVER: The liver is normal in size. The liver contour is normal. Diffuse increased echogenicity to the liver parenchyma with focal fatty sparing along the gallbladder fossa. No focal hepatic lesion. There is no intrahepatic biliary duct dilatation seen. GALLBLADDER: The gallbladder is physiologically distended without evidence of stones, sludge, wall thickening or pericholecystic fluid. 0.4 x 0.5 x 0.4 cm nonmobile, nonshadowing gallbladder wall echogenicity identified within the gallbladder lumen on supine imaging. COMMON BILE DUCT: Normal in caliber measuring 0.4 cm in diameter. RIGHT KIDNEY: Normal. No hydronephrosis. No renal calculi or focal parenchymal lesions. The kidney measures 11.2 cm in maximum dimension. LEFT KIDNEY: No hydronephrosis. No renal calculi or focal parenchymal lesions. The kidney measures 11.5 cm in maximum dimension. Hyperechoic focus lower pole likely calcified vessel. SPLEEN: Normal. The spleen measures 11.1 cm in maximum dimension. 10.2 x 1.2 x 1.7 cm splenule. FREE FLUID: None. US/US abdomen complete IMPRESSION: Study limitations including pancreas and aorta. Should either or both be of clinical concern, consider other imaging modality such as CT. Hepatic steatosis. 5 mm gallbladder polyp. Assessment & Plan Assessment & Plan (1) GERD (gastroesophageal reflux disease): Code(s): K21.9 - Gastro-esophageal reflux disease without esophagitis Qualifiers: Esophagitis presence: esophagitis presence not specified Qualified Code(s): K21.9 - Gastro-esophageal reflux disease without esophagitis (2) Postprandial abdominal bloating: Code(s): R14.0 - Abdominal distension (gaseous) (3) Dyspepsia: Code(s): R10.13 - Epigastric pain (4) Postprandial epigastric pain: Code(s): R10.13 - Epigastric pain Plan Patient reports epigastric pain postprandially, sometimes pain and left upper quadrant and sometimes pain in the right upper quadrant. Diagnosed with gallbladder polyp. Patient was seen by surgeon who will re-evaluate the polyp with ultrasound in 6 months. Patient will start taking Nexium in the morning and famotidine at bedtime. Discussed with patient avoiding dietary triggers and late night snacking. Staying upright for minimum 3 hours after meals discussed with patient. Will check for H pylori and treat empirically if positive. Will recheck his liver panel and lipase. Patient can take simethicone. Discussed with him also low FODMAP diet. List of food recommended as well as list of food to avoid given to patient. Patient will be scheduled for upper endoscopy. Will rule out gastritis, esophagitis, duodenitis, gastric or peptic ulcers. I will see him after the procedure, sooner on as needed basis.. He was given the opportunity to ask questions and all questions answered. Thank you for allowing me to participate in his care Orders: Orders Lipase 09/05/23 R10.9 - Unspecified abdominal pain Vitamin D 25-OH (D2 and D3) 09/05/23 E55.9 - Vitamin D deficiency, unspecified H pylori Ag Stool 09/05/23 K21.9 - Gastro-esophageal reflux disease without esophagitis Liver Panel 09/05/23 R74.01 - Elevation of levels of liver transaminase levels Vitamin B12 and Folate 09/05/23 R19.7 - Diarrhea, unspecified Medications: New simethicone (Gas Relief (simethicone)) 80 mg PO TID-QID PRN 120 tabs 4RF abdominal distention esomeprazole magnesium (Nexium) 40 mg PO DAILY 90 caps 5RF K21.9 - Gastro-esophageal reflux disease without esophagitis famotidine 40 mg PO BEDTIME 90 tabs 3RF K21.9 - Gastro-esophageal reflux disease without esophagitis simethicone (Gas Relief (simethicone)) 125 mg PO TID-QID PRN 120 caps 2RF abdominal distention R14.0 - Abdominal distension (gaseous) Discontinued omeprazole Discontinued Reason: Doctor's Order 20 mg PO DAILY 30 days 30 caps 2RF K21.9 - Gastro-esophageal reflux disease without esophagitis, R10.11 - Right upper quadrant pain Coding Level of Care Code New Pt Level 4 (17955) Diagnoses Gastroesophageal reflux disease, unspecified whether esophagitis present K21.9 Esophagitis presence: esophagitis presence not specified Postprandial abdominal bloating R14.0 Dyspepsia R10.13 Postprandial epigastric pain R10.13 Time Spent (min) 45 Comment 30 minutes spent with patient and additional 15 minutes spent reviewing his records
== END 2023-09-05 14:16 | disposition home or self-care (01) ==
PROVIDERS: PCP Physician Assistant; Visit Provider Nurse Practitioner Family
DX: K21.9 Gastro-esophageal reflux disease without esophagitis (principal); R14.0 Abdominal distension (gaseous); R10.13 Epigastric pain
CPT/HCPCS: 99204

== ENCOUNTER 2023-09-05 13:01 | Outpatient (REF) | payer OTHER, SELFPAY ==
[2023-09-05 14:39] LABS: Alanine Aminotransferase 28 U/L (0-40); Albumin Level 4.4 g/dL (3.5-5.0); Alkaline Phosphatase 84 U/L (39-117); Aspartate Amino Transferase 19 U/L (5-37); Bilirubin Direct 0.2 mg/dL (0.0-0.5); Bilirubin Total 0.5 mg/dL (0.0-1.0); Lipase 27 U/L (8-78)
[2023-09-05 15:05] LABS: Folate 13.3 ng/mL (> or = 4.0); Vitamin B12 593 pg/mL (200-900)
[2023-09-09 17:09] LABS: Vitamin D 25-OH, D2 <4 ng/mL; Vitamin D 25-OH, D3 19 ng/mL; Vitamin D 25-OH, Total 19 ng/mL (30-100)
== END 2023-09-05 13:02 | disposition home or self-care (01) ==
LOC: HO.LAB 13:01
PROVIDERS: PCP Physician Assistant; Visit Provider Nurse Practitioner Family
DX: E55.9 Vitamin D deficiency, unspecified (principal); R19.7 Diarrhea, unspecified; R10.9 Unspecified abdominal pain; R74.01 Elevation of levels of liver transaminase levels; K21.9 Gastro-esophageal reflux disease without esophagitis
CPT/HCPCS: 36415; 80076; 82306; 82607; 82746; 83690

== ENCOUNTER 2023-09-09 15:16 | Outpatient (AMB) | payer OTHER, SELFPAY ==
[2023-09-09 15:18] VITALS: BP 100/62; PULSE 100; O2SAT 96; BMI 36.5
--- NOTE | 2023-09-09 15:18 | MHC.PC.OV ---
Vital Signs 09/09/23 15:18 Height 5 ft 5 in Weight 219 lb 2 oz BMI 36.5 BP 100/62 Blood Pressure Location Lt brachial Position Sitting Pulse 100 Pulse Source Pulse Oximeter Pulse Oximetry (%) 96 Oxygen Delivery Method Room Air Intake Visit Reasons: [facility]- Sinusitis, Nausea Intake Note: Patient is here to follow-up after a visit the emergency department at [facility] on 09/04/23 for Sinusitis. [employer] Required: No Accompanied by: Self / Same As Patient Allergies Penicillins [PENICILLINS] Allergy (Mild, Verified 09/09/23 15:27) UNSURE Seasonal Allergies Allergy (Unknown, Verified 09/09/23 15:27) Unknown Medication List - Last Reconciled 09/09/23 by Juancarlos Meyer PA-C aspirin (Nell Advanced) 500 mg PO Q4-6H PRN blood sugar diagnostic (FreeStyle Lite Strips) As directed esomeprazole magnesium (Nexium) 40 mg PO DAILY famotidine 40 mg PO BEDTIME ketorolac 10 mg PO TID PRN 5 days montelukast (Singulair) 10 mg PO DAILY 90 days ondansetron 4 mg PO Q6H PRN semaglutide (Ozempic) 0.5 mg (0.736 mL) subcut QWEEK 4 weeks simethicone (Gas Relief (simethicone)) 80 mg PO TID-QID PRN simethicone (Gas Relief (simethicone)) 125 mg PO TID-QID PRN triamcinolone acetonide 0.5% 1 appl topical DAILY 15 days Tobacco use date assessed: 09/09/23 Dental Screening Dental Screen Date: 09/09/23 Did you have a dental visit in the last 12 months?: Yes Did you have a dental problem in the last 6 months where you did not have access to dental care?: No Was dental information given to patient?: Patient has dentist HPI [facility] F[place]- Sinusitis, Nausea HPI Details Patient is a 38-year-old male here today for an ER follow-up visit. He presents to the ER with acute facial pain nausea and nasal congestion. Patient diagnosed with acute sinusitis and prescribed doxycycline, ondansetron and anti-inflammatory. Unfortunately treatment for sinus infection was not effective. He continues to have head pain on both sides of his head and in his frontal region. He denies any nasal congestion, fevers, sneezing coughing. He is concerned about his head pain as they have become more frequent and are associated with some dizziness and disorientation. He reports he did try his 's sumatriptan which was effective for a short period of time. He denies any significant head trauma. [facility] Surgical History No pertinent past surgical history Family History Father No problems noted. Mother Asthma Fibromyalgia Anxiety and depression Social History Housing: House Alcohol intake: current Alcohol intake frequency: holidays/special occasions only Patient Tobacco Use Status: Never used Tobacco e-Cigarette/Vaping Use: Never Used service: No Current occupational status: employed Current occupation: [employer] Cognitive needs: No Hearing needs: No Vision needs: No Questionnaire Thrive Questionnaire Date Thrive assessed: 08/21/23 RENAY-7 AMB Questionnaire RENAY-7 Date RENAY - 7 assessed: 08/21/23 Source: Developed by Drs. Neville Augustin, Iram Hillman, Josiah Rodriguez and colleagues, with an educational ysabel from [employer]. Review of Systems Const Reports headache(s) Eyes Denies loss of vision ENT Denies vertigo, Denies dizziness, Reports headache(s) and Denies sore throat Card Denies chest pain, Denies leg edema and Denies lightheadedness Resp Denies cough, Denies hemoptysis and Denies wheezing GI Denies abdominal pain, Denies melena, Denies constipation, Denies diarrhea and Denies vomiting Denies dysuria, Denies urinary frequency and Denies urinary urgency Musc Denies arthralgias, Denies joint swelling, Denies numbness and Denies tingling Neuro Denies Abnormal speech present, Denies behavioral changes, Denies vertigo, Denies dizziness, Reports headache(s), Denies loss of vision, Denies memory loss, Denies numbness and Denies tingling Psych Denies anxiety, Denies behavioral changes, Denies depression, Denies memory loss and Denies panic attacks Quirino/Lymph Denies easy bleeding and Denies easy bruising Aller/Immun Denies wheezing Physical exam (Primary Care) Vital Signs: Last Vital Signs Pulse 100 09/09/23 15:18 BP 100/62 09/09/23 15:18 Pulse Ox 96 09/09/23 15:18 Oxygen Delivery Method Room Air 09/09/23 15:18 BMI result Body Mass Index 36.5 Tobacco/Smoking Status: Tobacco use Status Tobacco use date assessed 09/09/23 09/09/23 15:20 Patient Tobacco Use Status Never used Tobacco 09/09/23 15:19 e-Cigarette/Vaping Use Never Used 09/09/23 15:19 Thrive Assessment: Date of Thrive Assessment Date Thrive assessed 08/21/23 09/09/23 15:19 Const General: healthy appearing, no acute distress, alert and awake Nutritional Appearance: well nourished Orientation/consciousness: oriented to person, oriented to place and oriented to time [facility] Head images: 1. HEAD PAIN AND PRESSURE REPORTED IN THE AREA OUTLINED Ears: TM's normal bilaterally General nose exam: Normal nasal mucous membranes and turbinates present Eyes Conjunctivae: conjunctivae normal Sclerae: sclerae normal Pupils: Equal, round and reactive pupils present Neck Neck: Yes no lymphadenopathy and Yes no JVD Thyroid: Thyroid normal Carotids: no bruits Resp Effort & Inspection: normal respiratory effort and not tachypneic Auscultation: no crackles, no rales, no rhonchi and no wheezes Cardio Rate: regular rate Rhythm: regular rhythm Heart sounds: no murmurs and normal S1 and S2 GI Palpation (GI): Soft to palpation, nontender, no hepatomegaly and no splenomegaly Auscultation: normal bowel sounds Skin General skin exam: no rashes or lesions noted and dry skin Neuro General: oriented to person, oriented to place and oriented to time Cranial nerves: Yes Equal, round and reactive pupils present Speech: No Abnormal speech present Gait exam (Neuro): Normal gait present Motor exam (neuro): no tremor noted Extrem Right upper extremity: full ROM Left upper extremity: full ROM Right lower extremity: full ROM; no edema Left lower extremity: full ROM; no edema Psych Mental Status: mental status grossly normal Speech and movement: Normal speech and movement present Affect: normal affect Attitude: cooperative Thought process: Normal thought process present Assessment and Plan Assessment & Plan (1) Migraines: Code(s): G43.909 - Migraine, unspecified, not intractable, without status migrainosus Qualifiers: Migraine type: unspecified Status migrainosus presence: without status migrainosus Intractability: not intractable Qualified Code(s): G43.909 - Migraine, unspecified, not intractable, without status migrainosus Plan: Patient continues to have pressure in his frontal and parietal regions of his head. He reports he has had the symptoms at a lesser extent in less frequently for over 2 years now. Believed to be allergies though his on allergy medication and injections and symptoms have not been resolving. Was seen at the ER and was treated for a sinus infection though has not been Resolving his symptoms. Continues to have had pressure on both sides of his head that come along with disorientation and dizziness. Will send for CT of head to evaluate for any intracranial space-occupying mass. Will try Triptan and Fioricet for migraine disorder. Advised on trying magnesium and vitamin B2 Orders: Orders CT head/brain wo IV con Today G43.909 - Migraine, unspecified, not intractable, without status migrainosus Medications: New ndmemkcdbq-gescsjhkaxlkv-cmng 50-325-40 mg 1 cap PO Q6H 4 days PRN 16 caps 0RF pain G43.909 - Migraine, unspecified, not intractable, without status migrainosus sumatriptan succinate take 1 tab at onset of headache; if no relief may repeat 1 tab after at least 2 hrs; max = 4 tabs/24 hr PO 30 days 10 tabs 0RF G43.909 - Migraine, unspecified, not intractable, without status migrainosus Coding Level of Care Code Est Pt Level 3 (23670) Diagnoses Migraine without status migrainosus, not intractable, unspecified migraine type G43.909 Migraine type: unspecified Status migrainosus presence: without status migrainosus Intractability: not intractable
== END 2023-09-09 15:45 | disposition home or self-care (01) ==
PROVIDERS: PCP Physician Assistant; Visit Provider Physician Assistant
DX: G43.909 Migraine, unspecified, not intractable, without status migrainosus (principal)
CPT/HCPCS: 99213

== ENCOUNTER 2023-09-25 07:46 | Outpatient (REF) | payer OTHER, SELFPAY ==
--- NOTE | ~2023-09-25 | CT_ITS ---
EXAMINATION: CT HEAD WITHOUT CONTRAST CLINICAL INFORMATION: Headaches, worsening with increased frequency. COMPARISON: None. TECHNIQUE: Contiguous axial imaging was performed from the skullbase to vertex without intravenous administration of contrast. This CT examination was performed using dose optimization techniques as appropriate, variously including the following: *Automated exposure control *Adjustment of mA and/or kV according to patient size (this includes techniques or standardized protocols for targeted exams where dose is matched to indication/reason for exam; i.e. extremities or head) *Use of iterative reconstruction technique DLP: 876 mGy-cm. FINDINGS: There is no evidence of acute intracranial hemorrhage or territorial infarction. No abnormal mass effect or midline shift is seen. Dumont to white matter differentiation is well preserved. No extra-axial fluid collections are identified. Incidental randy cisterna magna noted. 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 The ventricles are normal in size. There is no abnormal attenuation within the brain parenchyma. The osseous structures and soft tissues are normal. The mastoid air cells and visualized portions of the paranasal sinuses are well aerated. CT/CT head/brain wo IV con IMPRESSION: No acute intracranial pathology. Incidental simple-appearing 1 cm parapineal cyst. Otherwise relatively normal CT scan of the head.
== END 2023-09-25 07:47 | disposition home or self-care (01) ==
LOC: HO.CT 07:46
PROVIDERS: PCP Physician Assistant; Visit Provider Physician Assistant
DX: G43.909 Migraine, unspecified, not intractable, without status migrainosus (principal)
CPT/HCPCS: 70450

== ENCOUNTER 2023-09-26 06:46 | Day surgery (SDC) | payer OTHER, SELFPAY ==
--- NOTE | 2023-09-25 09:39 | P.CONAN_ITS ---
HPI - Anesthesia Eval Consult details Narrative: 38yo M for Upper Endoscopy Anesthesia Pre-Procedure Meds Is the patient on any of the following meds?: Semaglutide (Ozempic) If Yes to any meds - educate patient: Pt education - increased risk of aspiration and Pt education - possibility of cancelled proc at provider's discretion PMFSH Active Problems Active Problems: All Active Problems (Updated 09/24/23 @ 09:56 by France Ayala RN) Migraines (Acute) Enlarged tonsils (Acute) Acute dermatitis (Acute) Annual physical exam (Acute) Gallbladder polyp (Acute) RENAY (generalized anxiety disorder) (Acute) MDD (major depressive disorder), recurrent episode, moderate (Acute) Thoracic spine pain (Acute) GERD (gastroesophageal reflux disease) (Acute) RUQ abdominal pain (Acute) Eustachian tube disorder (Acute) Allergic rhinitis (Acute) Obese (Acute) Type 2 diabetes mellitus (Acute) Past Medical History Medical History GERD (gastroesophageal reflux disease) Anxiety and depression Migraine Diabetes Family History Family History Father No problems noted. Mother Asthma Fibromyalgia Anxiety and depression Surgical History Surgical History No pertinent past surgical history Social History Social History Housing: House Alcohol intake: current Alcohol intake frequency: holidays/special occasions only Patient Tobacco Use Status: Never used Tobacco e-Cigarette/Vaping Use: Never Used service: No Current occupational status: employed Current occupation: [employer] Cognitive needs: No Hearing needs: No Vision needs: No Meds Allergies Allergy/AdvReac Type Severity Reaction Status Date / Time Penicillins [PENICILLINS] Allergy Mild UNSURE Verified 09/26/23 07:20 Seasonal Allergies Allergy Unknown Unknown Verified 09/26/23 07:20 Home Medications Medication Instructions Recorded Confirmed Last Taken Type aspirin 500 mg tablet (Nell 500 mg PO Q4-6H PRN Nausea And 05/21/23 09/26/23 Unknown History Advanced) Vomiting blood sugar diagnostic (FreeStyle 05/21/23 09/09/23 Unknown History Lite Strips) Assessment and Plan Assessment Anesthesia Assessment: Chart Reviewed
[2023-09-26 07:22] VITALS: BMI 35.5
[2023-09-26 07:23] VITALS: BP 126/80; PULSE 88; RESP 16; TEMP 36.4; O2SAT 96
[2023-09-26 07:47] LABS: Glucose, Whole Blood 154 mg/dL (60-115)
[2023-09-26] MEDS: Lactated Ringers 1,000 ML 100 ML IVCONT (07:52)
--- NOTE | 2023-09-26 08:14 | HO.ANESPROP2 ---
[facility] Active Problems Active Problems: All Active Problems (Updated 09/26/23 @ 08:07 by Juancarlos Meyer PA-C) Recurrent headache (Acute) Pineal gland cyst (Acute) Migraines (Acute) Enlarged tonsils (Acute) Acute dermatitis (Acute) Annual physical exam (Acute) Gallbladder polyp (Acute) RENAY (generalized anxiety disorder) (Acute) MDD (major depressive disorder), recurrent episode, moderate (Acute) Thoracic spine pain (Acute) GERD (gastroesophageal reflux disease) (Acute) RUQ abdominal pain (Acute) Eustachian tube disorder (Acute) Allergic rhinitis (Acute) Obese (Acute) Type 2 diabetes mellitus (Acute) Past Medical History Medical History GERD (gastroesophageal reflux disease) Anxiety and depression Migraine Diabetes Family History Family History Father No problems noted. Mother Asthma Fibromyalgia Anxiety and depression Family history of problems with anesthesia: No Surgical History Surgical History No pertinent past surgical history History of Problems with Anesthesia: Unobtainable Social History Social History Housing: House Alcohol intake: current Alcohol intake frequency: holidays/special occasions only Patient Tobacco Use Status: Never used Tobacco e-Cigarette/Vaping Use: Never Used Use of substances other than those prescribed or required for medical reasons: No Are you DNR?: No Advance Directives: No Advance Directives Information Provided: Yes service: No Current occupational status: employed Current occupation: [employer] Cognitive needs: No Hearing needs: No Vision needs: No Meds Allergies Allergy/AdvReac Type Severity Reaction Status Date / Time Penicillins [PENICILLINS] Allergy Mild UNSURE Verified 09/26/23 07:20 Seasonal Allergies Allergy Unknown Unknown Verified 09/26/23 07:20 Active Medications: Current Medications Lactated Ringer's (Lr) 1,000 mls @ 100 mls/hr IVCONT .Q10H BRENDON Last Admin: 09/26/23 07:52 Dose: 100 mls/hr Ondansetron HCl (Ondansetron Hcl 4 Mg/2 Ml Vial) 4 mg IVPUSH ONCE PRN PRN Reason: Nausea and Vomiting Ondansetron HCl (Ondansetron Hcl 4 Mg/2 Ml Vial) 4 mg IVPUSH ONCE PRN PRN Reason: Nausea and Vomiting Home Medications Medication Instructions Recorded Confirmed Last Taken Type aspirin 500 mg tablet (Nell 500 mg PO Q4-6H PRN Nausea And 05/21/23 09/26/23 Unknown History Advanced) Vomiting blood sugar diagnostic (FreeStyle 05/21/23 09/09/23 Unknown History Lite Strips) Exam Height,Weight and Vital Signs: Height 5 ft 6 in Weight 99.79 kg Last Vital Signs Temp 97.5 F 09/26/23 07:23 Pulse 88 09/26/23 07:23 Resp 16 09/26/23 07:23 BP 126/80 09/26/23 07:23 Pulse Ox 96 09/26/23 07:23 O2 Del Method Room Air 09/26/23 07:23 Pertinent Lab Results Pertinent Lab Results: Laboratory Tests 09/26/23 07:42 POC Glucose 154 H Airway Mallampati Class: IV TM Dist: >3cm Neck ROM: Full Loose/Missing/Broken Teeth: No Heart: rrr Lungs: clear Assessment and Plan Final Anesthetic Review Family History of Problems with Anesthesia: No History of Problems with Anesthesia: Unobtainable ASA Class: II Final Preanesthetic Review: No Changes in Pt Med Stat, Meds/Allgs Chart Reviewed, Consent Obtained/Reviewed and Anes Risks/Benef Reviewed Patient Risk: Intermediate Procedure Risk: Low Anesthetic Plan Anesthetic Plan: MAC: Disposition: Standard PACU
--- NOTE | 2023-09-26 08:19 | MHC.SHP ---
Pre-Procedural Eval Section A - 24 Hr Update-Section A only Date of Service: 09/26/23 The patient is an INPATIENT: No The patient has been examined within 24 hours of the surgical procedure. The History & Physical has been completed within 30 days and I have reviewed it.: Yes Section B - Complete if H&P > 30 days Chief Complaint: Unspecified abdominal pain Details of Present Illness: Pertinent hx: started ozempic x 8-10 weeks ago - has been having abd discomfort, nausea and occ vomiting x 6 weeks - better for the past 2 weeks (off ozempic during this time, but also started PPI around the same time) Allergies: Allergies Allergy/AdvReac Type Severity Reaction Status Date / Time Penicillins [PENICILLINS] Allergy Mild UNSURE Verified 09/26/23 07:20 Seasonal Allergies Allergy Unknown Unknown Verified 09/26/23 07:20 Plan Diagnosis/Plan: Unchanged I have reviewed the history and physical and performed a pertinent physical examination on my patient. No changes have occurred unless specified. Time Spent With Patient Time: Total time managing care of this patient today ____ minutes.
--- NOTE | 2023-09-26 09:13 | P.OP_ITS ---
Operative Note Operative Note Date of Service: 09/26/23 Narrative: Procedure: Esophagogastroduodenoscopy Endoscopist: Marissa Vega MD Indication: Abd pain, nausea, vomiting Anesthesia Provider: Dr Hank Scott Anesthesia Type: MAC ?? EGD Procedure:?? The procedure, indications, preparation and potential complications were reviewed with the patient, who indicated understanding and gave written informed consent to proceed. A physical exam was performed. The endoscope was introduced through the mouth, and advanced to the second part of duodenum. The mucosa was carefully examined on slow withdrawal of the endoscope. The patient tolerated the procedure well. There were no immediate complications.? ? EGD Findings:? * Larynx: Erythema and edema of arytenoids noted. * Esophagus:? Normal mucosa noted in the entire esophagus. The Z line was at 37 cm. Middle and lower esophagus forceps biopsies were obtained to rule out eosinophilic esophagitis. * Stomach:? Erythema and erosions were noted in the body and antrum. Random cold forceps biopsies were taken to rule out H Pylori infection. * Duodenum:?Erythema, edema and linear ulcerations were noted in the duodenal bulb. Normal mucosa was noted in the sweep and D2. Cold forceps biopsies were taken from duodenal bulb and second portion of the duodenum. ? EGD Impressions:? * Inflammed arytenoids * Normal esophagus (biopsy) * Gastritis (biopsy) * Peptic duodenitis (biopsy) ?? Recommendations:?? * Follow biopsy results. Our office will call or send a letter with results within 7-10 days. * Start/continue PPI therapy. * If H pylori +, patient will be prescribed eradication therapy followed by test of cure. * Avoid NSAIDs. Above has been reviewed with the patient.
[2023-09-26 09:36] VITALS: BP 117/47; PULSE 82; RESP 13; TEMP 36.4; O2SAT 98
[2023-09-26 09:51] VITALS: BP 119/71; PULSE 90; RESP 18; TEMP 36.4; O2SAT 96
== END 2023-09-26 10:44 | disposition home or self-care (01) ==
PROVIDERS: PCP Physician Assistant; Visit Provider Internal Medicine
PROC: 0DJ08ZZ Inspection of Upper Intestinal Tract, Via Natural or Artificial Opening Endoscopic (ICD-10-PCS; CPT 43235; principal; 2023-09-26 09:10)
DX: K29.80 Duodenitis without bleeding (principal); K29.50 Unspecified chronic gastritis without bleeding; J38.4 Edema of larynx; J30.2 Other seasonal allergic rhinitis; F41.8 Other specified anxiety disorders; E11.9 Type 2 diabetes mellitus without complications; E66.9 Obesity, unspecified; Z68.37 Body mass index [BMI] 37.0-37.9, adult; Z79.899 Other long term (current) drug therapy; Z79.82 Long term (current) use of aspirin; Z88.0 Allergy status to penicillin
CPT/HCPCS: 43239; 82947; 88305; 88313; 88342; J2704

== ENCOUNTER → 2023-09-26 06:46 | Outpatient (BNV) | payer OTHER, SELFPAY | PROVIDERS: PCP Physician Assistant; Visit Provider Internal Medicine | DX: K29.90 Gastroduodenitis, unspecified, without bleeding (principal) | CPT/HCPCS: 43239 ==

== ENCOUNTER 2023-10-16 07:19 | Outpatient (REF) | payer OTHER, SELFPAY ==
--- NOTE | ~2023-10-16 | MR_ITS ---
EXAMINATION: MR BRAIN WITHOUT AND WITH CONTRAST CLINICAL INFORMATION: 38-year-old with recurrent headaches and previous CT showing 1 cm pineal region cyst. COMPARISON: 09/25/2023 CT brain. TECHNIQUE: Multiplanar, multisequence MRI of the brain was obtained before and after the intravenous administration of 10 mL Gadavist. FINDINGS: BRAIN VOLUME: Within normal limits within the limitations of qualitative assessment. STRUCTURAL: Incidental note is made of a prominent randy cisterna magna in the posterior fossa similar to the previous CT, which is an anatomic variant. No definite pineal cyst is visualized on MRI. There is mild prominence of the cistern of velum interpositum, which is an anatomic variant. BRAIN AND MENINGES: DWI sequence demonstrates no restricted diffusion to suggest acute or subacute cerebral ischemia. Otherwise, the brain parenchyma is normal in morphology and signal intensity. No intracranial mass lesions, extra-axial fluid collections, space-occupying process, mass effect or pathologic intracranial enhancement are identified. Incidental note is made of a small developmental venous anomaly in the anterior right temporal lobe. Gradient refocused imaging demonstrates no abnormal susceptibility-weighted signal loss to suggest hemorrhage, hemosiderin staining or abnormal mineralization. VENTRICLES AND SUBARACHNOID SPACES: The ventricular system and subarachnoid spaces are within normal range; there is no hydrocephalus. ORBITAL STRUCTURES: The visualized orbital structures are grossly unremarkable within the limitations of the study. VASCULAR: Signal voids are noted in the visualized major intracranial vessels. OSSEOUS STRUCTURES, SINUSES/MASTOIDS, EXTRACRANIAL SOFT TISSUES: Unremarkable. MR/MR head/brain wo/w con IMPRESSION: 1. 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 No definite pineal cyst is visualized on MRI. 2. No intracranial mass lesion, pathologic enhancement, space-occupying process, mass effect or hydrocephalus. 3. Small developmental venous anomaly in the anterior right temporal lobe.
[2023-10-16] MEDS: gadobutroL 10 ML VIAL IVPUSH (08:01)
== END 2023-10-16 07:20 | disposition home or self-care (01) ==
LOC: HO.MRI 07:19
PROVIDERS: PCP Physician Assistant; Visit Provider Physician Assistant
DX: R51.9 Headache, unspecified (principal); E34.8 Other specified endocrine disorders
CPT/HCPCS: 70553; A9585

== ENCOUNTER 2023-11-04 | Outpatient (REF) | payer OTHER, SELFPAY ==
[2023-11-05 15:46] LABS: H Pylori Breath Test Negative (Negative)
== END 2023-11-04 00:01 | disposition home or self-care (01) ==
LOC: HO.LNP
PROVIDERS: Visit Provider Nurse Practitioner Family
DX: K21.9 Gastro-esophageal reflux disease without esophagitis (principal)
CPT/HCPCS: 83013

== ENCOUNTER 2023-11-04 09:13 | Outpatient (AMB) | payer OTHER, SELFPAY ==
--- NOTE | 2023-11-04 09:16 | A.OFFVIS_ITS ---
Intake Vital Signs 11/04/23 09:17 Height 5 ft 6 in Weight 220 lb 7.396 oz BMI 35.6 BP 109/69 Blood Pressure Location Lt brachial Position Sitting Pulse 77 Pulse Source Pulse Oximeter Pulse Oximetry (%) 99 Oxygen Delivery Method Room Air Intake Visit Reasons: follow up H pylori Intake Note: pt here for follow up H Pyloric, no concerns Human Resources Services Specialist Required: No Information Interpreted: non-clinical & clinical Accompanied by: girlfriend Allergies Penicillins [PENICILLINS] Allergy (Mild, Verified 11/04/23 09:19) UNSURE Seasonal Allergies Allergy (Unknown, Verified 11/04/23 09:19) Unknown HPI follow up H pylori HPI Details LAST VISIT: GERD (gastroesophageal reflux disease) Postprandial abdominal bloating Dyspepsia Postprandial epigastric pain Plan Patient reports epigastric pain postprandially, sometimes pain and left upper quadrant and sometimes pain in the right upper quadrant. Diagnosed with gallbladder polyp. Patient was seen by surgeon who will re-evaluate the polyp with ultrasound in 6 months. Patient will start taking Nexium in the morning and famotidine at bedtime. Discussed with patient avoiding dietary triggers and late night snacking. Staying upright for minimum 3 hours after meals discussed with patient. Will check for H pylori and treat empirically if positive. Will recheck his liver panel and lipase. Patient can take simethicone. Discussed with him also low FODMAP diet. List of food recommended as well as list of food to avoid given to patient. Patient will be scheduled for upper endoscopy. Will rule out gastritis, esophagitis, duodenitis, gastric or peptic ulcers. I will see him after the procedure, sooner on as needed basis.. He was given the opportunity to ask questions and all questions answered. ? Thank you for allowing me to participate in his care Orders Orders Lipase 09/05/23 R10.9 Vitamin D 25-OH (D2 and D3) 09/05/23 E55.9 H pylori Ag Stool 09/05/23 K21.9 Liver Panel 09/05/23 R74.01 Vitamin B12 and Folate 09/05/23 R19.7 Medications New simethicone (Gas Relief (simethicone)) 80 mg PO TID-QID PRN 120 tabs 4RF abdomi nal distention esomeprazole magnesium (Nexium) 40 mg PO DAILY 90 caps 5RF K21.9 famotidine 40 mg PO BEDTIME 90 tabs 3RF K21.9 simethicone (Gas Relief (simethicone)) 125 mg PO TID-QID PRN 120 caps 2RF abdom inal distention R14.0 Discontinued omeprazole Discontinued Reason: Doctor's Order 20 mg PO DAILY 30 days 30 caps 2RF K21.9, R10.11 UPPER ENDOSCOPY: EGD Findings:? * Larynx: Erythema and edema of arytenoids noted. * Esophagus:? Normal mucosa noted in the entire esophagus. The Z line was at 37 cm. Middle and lower esophagus forceps biopsies were obtained to rule out eosinophilic esophagitis. * Stomach:? Erythema and erosions were noted in the body and antrum. Random cold forceps biopsies were taken to rule out H Pylori infection. * Duodenum:?Erythema, edema and linear ulcerations were noted in the duodenal bulb. Normal mucosa was noted in the sweep and D2. Cold forceps biopsies were taken from duodenal bulb and second portion of the duodenum. ? EGD Impressions:? * Inflammed arytenoids * Normal esophagus (biopsy) * Gastritis (biopsy) * Peptic duodenitis (biopsy)?? Recommendations:?? * Follow biopsy results. Our office will call or send a letter with results within 7-10 days. * Start/continue PPI therapy. * If H pylori +, patient will be prescribed eradication therapy followed by test of cure. * Avoid NSAIDs. PATHOLOGY: Diagnosis A. Duodenum, 2nd part, biopsy: Duodenal mucosa within normal limits. B. Duodenum, bulb, biopsy: Chronic active duodenitis. C. Stomach, random, biopsy: - Antral-type and oxyntic mucosa with mo derate chronic active inflammation. - Positive for H pylori. D. Esophagus, lower, biopsy: Squamous epithelium within normal limits; no inflammation seen. E. Esophagus, middle, biopsy: Squamous epithelium within normal limits; no inflammation seen TODAY'S VISIT: Patient is here today for follow-up and to discuss lab results and upper endoscopy and biopsy results. Patient was diagnosed with H pylori on upper endoscopy. Was treated with antibiotics, however patient was unable to take all of the antibiotics at the same time so we took half of the dose for longer period of time. Patient has been off of the PPI and H2 eric. Since he was treated he has not been on any medication to help with acid reflux. He also was off Ozempic and reports that he was feeling better. Patient reports that he felt nauseous this morning otherwise he has not had any GI concerning symptoms. Upper endoscopy and biopsy results discussed with patient [facility] Medical History (Updated 11/04/23 @ 10:29 by Rosemary Parham [facility]) Helicobacter pylori (H. pylori) GERD (gastroesophageal reflux disease) Anxiety and depression Migraine Diabetes Surgical History No pertinent past surgical history Family History Father No problems noted. Mother Asthma Fibromyalgia Anxiety and depression Social History Housing: House Alcohol intake: current Alcohol intake frequency: holidays/special occasions only Patient Tobacco Use Status: Never used Tobacco e-Cigarette/Vaping Use: Never Used service: No Current occupational status: employed Current occupation: [employer] Cognitive needs: No Hearing needs: No Vision needs: No Review of Systems Const Denies weight gain and Denies weight loss ENT Reports no additional complaints, Denies dysphagia and Denies odynophagia Card Reports no additional complaints Resp Reports no additional complaints GI Denies abdominal pain, Denies belching, Denies melena, Denies bloating, Denies change in bowel habits, Denies dysphagia, Denies excessive flatus, Denies dyspepsia, Denies heartburn, Denies diarrhea, Denies loose stools, Reports nausea (This morning), Denies odynophagia and Denies vomiting Reports no additional complaints Musc Reports no additional complaints Neuro Reports no additional complaints Psych Reports no additional complaints Endo Reports no additional complaints Physical Exam Vital Signs: Last Vital Signs Pulse 77 11/04/23 09:17 BP 109/69 11/04/23 09:17 Pulse Ox 99 11/04/23 09:17 Oxygen Delivery Method Room Air 11/04/23 09:17 BMI result Body Mass Index 35.6 Const General: healthy appearing and no acute distress Nutritional Appearance: obese Orientation/consciousness: patient oriented x3 Resp Effort & Inspection: normal respiratory effort, able to speak in complete sentences, no tracheal deviation and symmetric chest movement Auscultation: clear to auscultation bilaterally Cardio Rate: regular rate GI Inspection: Yes normal to inspection, No distended and Yes obesity Palpation (GI): Soft to palpation, not firm, nontender and No hepatosplenomegaly present Auscultation: normal bowel sounds General: Yes no CVA tenderness Back/Spine/Pelvis Back: no CVA tenderness Skin General skin exam: elasticity normal, turgor normal and dry skin Neuro General: patient oriented x3 Psych Appearance: grossly normal Mental Status: mental status grossly normal Results Reviewed Results Reviewed: Laboratory Tests 09/05/23 13:56 Total Bilirubin 0.5 Direct Bilirubin 0.2 AST 19 ALT 28 Alkaline Phosphatase 84 25-OH Vitamin D Total 19 L Folate 13.3 Assessment & Plan Assessment & Plan (1) GERD (gastroesophageal reflux disease): Code(s): K21.9 - Gastro-esophageal reflux disease without esophagitis Qualifiers: Esophagitis presence: esophagitis presence not specified Qualified Code(s): K21.9 - Gastro-esophageal reflux disease without esophagitis (2) Postprandial abdominal bloating: Code(s): R14.0 - Abdominal distension (gaseous) (3) Dyspepsia: Code(s): R10.13 - Epigastric pain (4) Postprandial epigastric pain: Code(s): R10.13 - Epigastric pain (5) Helicobacter pylori (H. pylori): Code(s): A04.8 - Other specified bacterial intestinal infections Plan Will retest patient for H pylori today and will treat empirically if positive. Patient will start taking Nexium in the morning and famotidine at bedtime. Discussed with patient avoiding dietary triggers and late night snacking. Staying upright for minimum 3 hours after meals discussed with patient. Patient also had low vitamin-D level he can start supplement daily. I will see patient in 2 months, sooner on as needed basis. Patient is agreeable to this plan and verbalizes understanding of instructions. He was given the opportunity to ask questions and all questions answered. Thank you for allowing me to participate in his care Orders: Orders H Pylori Breath Test Today K21.9 - Gastro-esophageal reflux disease without esophagitis Medications: New cholecalciferol (vitamin D3) 50 mcg PO DAILY 90 caps 3RF R79.89 - Other specified abnormal findings of blood chemistry Discontinued bismuth subsalicylate Discontinued Reason: Patient Completed Course 2 tabs PO QID 14 days 112 tabs 0RF A04.8 - Other specified bacterial intestinal infections metronidazole Discontinued Reason: Patient Completed Course 1,000 mg (2 x 500 mg) PO BID 56 tabs 0RF A04.8 - Other specified bacterial intestinal infections tetracycline Discontinued Reason: Patient Completed Course 1,000 mg (2 x 500 mg) PO Q12H 56 caps 0RF A04.8 - Other specified bacterial intestinal infections Coding Level of Care Code Est Pt Level 4 (82276) Diagnoses Gastroesophageal reflux disease, unspecified whether esophagitis present K21.9 Esophagitis presence: esophagitis presence not specified Postprandial abdominal bloating R14.0 Dyspepsia R10.13 Postprandial epigastric pain R10.13 Helicobacter pylori (H. pylori) A04.8 Time Spent (min) 35 Comment 20 minutes spent with patient and additional 15 minutes spent reviewing his records
[2023-11-04 09:17] VITALS: BP 109/69; PULSE 77; O2SAT 99; BMI 35.6
== END 2023-11-04 10:58 | disposition home or self-care (01) ==
PROVIDERS: PCP Physician Assistant; Visit Provider Nurse Practitioner Family
DX: K21.9 Gastro-esophageal reflux disease without esophagitis (principal); R14.0 Abdominal distension (gaseous); R10.13 Epigastric pain; A04.8 Other specified bacterial intestinal infections
CPT/HCPCS: 99214

== ENCOUNTER → 2023-11-04 09:13 | Outpatient (BNVA) | payer OTHER, SELFPAY | PROVIDERS: PCP Physician Assistant; Visit Provider Nurse Practitioner Family ==

== ENCOUNTER 2023-12-31 14:27 | Outpatient (AMB) | payer OTHER, SELFPAY ==
--- NOTE | 2023-12-31 14:32 | A.OFFPC_ITS ---
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: No Accompanied by: Significant Other Allergies Penicillins [PENICILLINS] Allergy (Mild, Verified 12/31/23 14:45) UNSURE Seasonal Allergies Allergy (Unknown, Verified 12/31/23 14:45) Unknown semaglutide [From Ozempic] Adverse Reaction (Intermediate, Verified 12/31/23 14:45) Nausea Medication List - Last Reconciled 12/31/23 by Juancarlos Meyer PA-C aspirin (Nell Advanced) 500 mg PO Q4-6H PRN blood sugar diagnostic (FreeStyle Lite Strips) As directed cholecalciferol (vitamin D3) 50 mcg PO DAILY ondansetron 4 mg PO Q6H PRN simethicone (Gas Relief (simethicone)) 80 mg PO TID-QID PRN sumatriptan succinate take 1 tab at onset of headache; if no relief may repeat 1 tab after at least 2 hrs; max = 4 tabs/24 hr PO 30 days Tobacco use date assessed: 09/09/23 Dental Screening Dental Screen Date: 09/09/23 HPI 3M f/u A1C for Diabetes HPI Details Patient is a 38-year-old male here today for a follow-up visit Patient has a past medical history significant for type 2 diabetes, Sleep apnea, seasonal allergies. Concern--> unfortunately continues to complain of daily headaches, dizziness and sinus pressure worse when he eats. Also reporting having some paresthesias in his arms worse at night. Does report some tendinitis in his left elbow when left lateral knee. Chronic abdominal pain/ dyspepsia: Has gotten ultrasound of abdomen that did show a 5 mm gallbladder polyp. He was then referred to general surgeon whom does not believe that this is causing his abdominal pain. He also has followed up with gastro and underwent an endoscopy which did show positive H pylori which she was treated for. He is be feeling better from a GI point of view. .. Chronic allergies: Continues to use [id number] allergy medication and nasal sprays much relief. He feels he has an inner ear issue. He has reestablish care with his ENT and has been started back on allergy injections. Of note does have obstructive sleep apnea and does use a CPAP machine on a nightly basis. He has been told his tonsils were enlarged which may be the cause of some of his obstructive sleep apnea. .. Type 2 diabetes: Today's A1c is 7.1 from 7.2. He has stopped Ozempic which was attributing to some of his GI issues. Laboratory Tests 05/15/23 05/21/23 08/21/23 10:16 11:12 11:23 RBC 5.45 POC Glucose Random Glucose 165 H Hgb A1c (Clinic) 7.2 H 7.1 H 25-OH Vitamin D To [facility] 09/05/23 09/26/23 13:56 07:42 RBC POC Glucose 154 H Random Glucose Hgb A1c (Clinic) 25-OH Vitamin D [facility] Medical History Helicobacter pylori (H. pylori) GERD (gastroesophageal reflux disease) Anxiety and depression Migraine Diabetes Surgical History No pertinent past surgical history Family History Father No problems noted. Mother Asthma Fibromyalgia Anxiety and depression Social History Housing: House Alcohol intake: current Alcohol intake frequency: holidays/special occasions only Patient Tobacco Use Status: Never used Tobacco e-Cigarette/Vaping Use: Never Used service: No Current occupational status: employed Current occupation: [employer] Cognitive needs: No Hearing needs: No Vision needs: No Questionnaire Thrive Questionnaire Date Thrive assessed: 08/21/23 RENAY-7 AMB Questionnaire RENAY-7 Date RENAY - 7 assessed: 08/21/23 Source: Developed by Drs. Neville Augustin, Iram Hillamn, Josiah Rodriguez and colleagues, with an educational ysabel from [employer]. Review of Systems Const Denies headache(s) Eyes Denies loss of vision ENT Denies vertigo, Denies dizziness, Denies headache(s) and Denies sore throat Card Denies chest pain, Denies leg edema and Denies lightheadedness Resp Denies cough, Denies hemoptysis and Denies wheezing GI Denies abdominal pain, Denies melena, Denies constipation, Denies diarrhea and Denies vomiting Denies dysuria, Denies urinary frequency and Denies urinary urgency Musc Denies arthralgias, Denies joint swelling, Denies numbness and Denies tingling Neuro Denies Abnormal speech present, Denies behavioral changes, Denies vertigo, Denies dizziness, Denies headache(s), Denies loss of vision, Denies memory loss, Denies numbness and Denies tingling Psych Denies anxiety, Denies behavioral changes, Denies depression, Denies memory loss and Denies panic attacks Quirino/Lymph Denies easy bleeding and Denies easy bruising Aller/Immun Denies wheezing Physical exam (Primary Care) Vital Signs: Last Vital Signs Pulse 102 H 12/31/23 14:33 BP 118/78 12/31/23 14:33 Pulse Ox 96 12/31/23 14:33 Oxygen Delivery Method Room Air 12/31/23 14:33 BMI result Body Mass Index 35.8 Tobacco/Smoking Status: Tobacco use Status Tobacco use date assessed 09/09/23 12/31/23 14:32 Patient Tobacco Use Status Never used Tobacco 12/31/23 14:32 e-Cigarette/Vaping Use Never Used 12/31/23 14:32 Thrive Assessment: Date of Thrive Assessment Date Thrive assessed 08/21/23 12/31/23 14:32 Const General: healthy appearing, no acute distress, alert and awake Nutritional Appearance: well nourished Orientation/consciousness: oriented to person, oriented to place and oriented to time [facility] Ears: TM's normal bilaterally General nose exam: Normal nasal mucous membranes and turbinates present Eyes Conjunctivae: conjunctivae normal Sclerae: sclerae normal Pupils: Equal, round and reactive pupils present Neck Neck: Yes no lymphadenopathy and Yes no JVD Thyroid: Thyroid normal Carotids: no bruits Resp Effort & Inspection: normal respiratory effort and not tachypneic Auscultation: no crackles, no rales, no rhonchi and no wheezes Cardio Rate: regular rate Rhythm: regular rhythm Heart sounds: no murmurs and normal S1 and S2 GI Palpation (GI): Soft to palpation, nontender, no hepatomegaly and no splenomegaly Auscultation: normal bowel sounds Skin General skin exam: no rashes or lesions noted and dry skin Neuro General: oriented to person, oriented to place and oriented to time Cranial nerves: Yes Equal, round and reactive pupils present Speech: No Abnormal speech present Gait exam (Neuro): Normal gait present Motor exam (neuro): no tremor noted Extrem Right upper extremity: full ROM Left upper extremity: full ROM Right lower extremity: full ROM; no edema Left lower extremity: full ROM; no edema Psych Mental Status: mental status grossly normal Speech and movement: Normal speech and movement present Affect: normal affect Attitude: cooperative Thought process: Normal thought process present Results AMB Hemoglobin A1c AMB Hemoglobin A1c 7.2 % Last Edit by ROSCOE Hay on 12/31/23 14:58 Results Reviewed Results Reviewed: Laboratory Last Values Hgb A1c (Clinic) 7.2 % (4.0-6.0) H 12/31/23 14:32 Assessment and Plan Assessment & Plan (1) Type 2 diabetes mellitus: Code(s): E11.9 - Type 2 diabetes mellitus without complications Qualifiers: Diabetes mellitus complication status: with hyperglycemia 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 He believes Ozempic has been causing or contributing to his GI issues. Has stopped this medication. Has had GI side effects to metformin as well. He is willing to start daily insulin. Today's A1c above 7.0 Goal A1c is to be below 7.0 (2) Obese: Code(s): E66.9 - Obesity, unspecified Qualifiers: Body mass index: BMI 36.0-36.9 Obesity classification: adult class 2 (BMI 35 - 39.9) Obesity type: due to excess calories Serious obesity comorbidity presence: without serious comorbidity Qualified Code(s): E66.09 - Other obesity due to excess calories; Z68.36 - Body mass index [BMI] 36.0-36.9, adult Plan: Patient does understand his BMI is over 30 will work on being more physically active and adapting to better eating habits to reduce his weight. (3) Allergic rhinitis: Code(s): J30.9 - Allergic rhinitis, unspecified Qualifiers: Allergic rhinitis seasonality: unspecified Allergic rhinitis trigger: other Qualified Code(s): J30.89 - Other allergic rhinitis Plan: Patient reports often having signs symptoms of allergies. He has restarted his allergy injections though still has allergy type symptoms (4) MDD (major depressive disorder), recurrent episode, moderate: Code(s): F33.1 - Major depressive disorder, recurrent, moderate Plan: Patient's PHQ-9 - 0 not interested in starting mental health medications. (5) RENAY (generalized anxiety disorder): Code(s): F41.1 - Generalized anxiety disorder Plan: Patient's RENAY-7 0 - Does have history of generalized anxiety disorder. Not interested in starting any medications at this time. (6) GERD (gastroesophageal reflux disease): Code(s): K21.9 - Gastro-esophageal reflux disease without esophagitis Qualifiers: Esophagitis presence: esophagitis presence not specified Qualified Co de(s): K21.9 - Gastro-esophageal reflux disease without esophagitis Plan: Continues to upper GI symptoms including nausea and episodes of vomiting. Was treated for H pylori which did help some of the symptoms though still has abdominal bloating and gas. He is willing to try PPI again in did review the correct way to use the medica tion. Also given sample of ( Vocqezna 20 mg) as a trial (7) Left lateral epicondylitis: Code(s): M77.12 - Lateral epicondylitis, left elbow Plan: Seems to be suffering a lateral epicondylitis. Advised on compression sleeve, cool compress. Did offer physical therapy though declines at this time. (8) Paresthesia of arm: Code(s): R20.2 - Paresthesia of skin Plan: Reporting bilateral hand and wrist paresthesias worse at night. He is willing to be evaluated with EMGs to evaluate for median nerve neuropathy. Orders: Orders AMB Hemoglobin A1c 12/31/23 E11.65 - Type 2 diabetes mellitus with hyperglycemia Comprehensive [place]. Panel Fast 12/31/23 E11.65 - Type 2 diabetes mellitus with hyperglycemia Complete Blood Count no Diff 12/31/23 E11.65 - Type 2 diabetes mellitus with hyperglycemia Resp Allergy Profile Region I 12/31/23 J30.89 - Other allergic rhinitis, R05.9 - Cough, unspecified HERMILO Reflex Titer and Pattern 12/31/23 R51.9 - Headache, unspecified NE electromyogram (EMG) 12/31/23 R20.2 - Paresthesia of skin Rheumatoid Factor 12/31/23 R51.9 - Headache, unspecified Medications: New insulin glargine (Lantus Solostar U-100 Insulin) 10 units (0.1 mL) subcut QPM 15 mL 1RF 30 days E11.65 - Type 2 diabetes mellitus with hyperglycemia pen needle, diabetic (BD Ultra-Fine Krystal Pen Needle) As directed 50 ea 1RF E11.65 - Type 2 diabetes mellitus with hyperglycemia diclofenac sodium 1% apply to single elbow, wrist or hand; for hand includes palm/fingers/back of hand 2 grams topical QID 100 grams 1RF 30 days M77.12 - Lateral epicondylitis, left elbow azelastine administer into each nostril 1 spray intranasal BID 30 mL 3RF 30 days J30.89 - Other allergic rhinitis omeprazole 20 mg PO DAILY 30 caps 2RF 30 days K21.9 - Gastro-esophageal reflux disease without esophagitis Changed From ondansetron 4 mg PO Q6H PRN 14 tabs 0RF nausea and vomiting K21.9 - Gastro-esophageal reflux disease without esophagitis To ondansetron 4 mg PO Q6H PRN 28 tabs 3RF nausea and vomiting 7 days K21.9 - Gastro-esophageal reflux disease without esophagitis Patient Instructions: Goal: A1c to be below 7.0 Barriers: Adherence to physical activity and healthy eating habits. 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 Allergic rhinitis seasonality: unspecified Allergic rhinitis trigger: other MDD (major depressive disorder), recurrent episode, moderate F33.1 RENAY (generalized anxiety disorder) F41.1 Gastroesophageal reflux disease, unspecified whether esophagitis present K21.9 Esophagitis presence: esophagitis presence not specified Left lateral epicondylitis M77.12 Paresthesia of arm R20.2
[2023-12-31 14:33] VITALS: BP 118/78; PULSE 102; O2SAT 96; BMI 35.8
== END 2023-12-31 15:24 | disposition home or self-care (01) ==
PROVIDERS: PCP Physician Assistant; Visit Provider Physician Assistant
DX: E11.65 Type 2 diabetes mellitus with hyperglycemia (principal)
CPT/HCPCS: 83036; 99214; G2211

== ENCOUNTER 2024-01-03 08:17 | Outpatient (AMB) | payer OTHER, SELFPAY ==
--- NOTE | 2024-01-03 08:20 | MHC.OFFVIS ---
Vital Signs 01/03/24 08:21 Height 5 ft 6 in Weight 222 lb BMI 35.8 Intake Visit Reasons: INP-Endocrine disorders/Headache-CONF Intake Note: Patient presents for endocrine disorders/headache. left side of my head hearts a lot when I get headaches I miss work due to the pain. very sensitive to light and sound. Allergies Penicillins [PENICILLINS] Allergy (Mild, Verified 01/03/24 08:28) UNSURE Seasonal Allergies Allergy (Unknown, Verified 01/03/24 08:28) Unknown semaglutide [From Ozempic] Adverse Reaction (Intermediate, Verified 01/03/24 08:28) Nausea Medication List - Last Reconciled 01/03/24 by JIMENEZ Cook azelastine 1 spray intranasal BID 30 days blood sugar diagnostic (FreeStyle Lite Strips) As directed cholecalciferol (vitamin D3) 50 mcg PO DAILY diclofenac sodium 1% 2 grams topical QID 30 days insulin glargine (Lantus Solostar U-100 Insulin) 10 units (0.1 mL) subcut QPM 30 days omeprazole 20 mg PO DAILY 30 days ondansetron 4 mg PO Q6H PRN 7 days pen needle, diabetic (BD Ultra-Fine Krystal Pen Needle) As directed simethicone (Gas Relief (simethicone)) 80 mg PO TID-QID PRN sumatriptan succinate take 1 tab at onset of headache; if no relief may repeat 1 tab after at least 2 hrs; max = 4 tabs/24 hr PO 30 days HPI Comments Details: Right handed 38-yr-old male presents for new pt evaluation of headache disorder. Pt reports he started having headaches 3 years ago around the same time he was diagnosed with sleep apnea. 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 No usual neck pain. Mood d/o: Anxiety, Sleep d/o: VERN- has a CPAP. From [facility]- states has not had new supplies in > 1 yr. Endocrine or metabolic d/o: Diabetes- type II, last HgA1C 7.2% Neuro: Has facial tingling- right now right sided. Not sure if worse when FISHER is worse. Hands become numb when sleeping. Denies BLE numbness/tingling. : frequent urination GI d/o: Constipation at times- was worse on Ozempic Family history of migraine or other headache disorder: mother- has migarine and vertigo Pertinent denials include: History of concussion/head injury, Respiratory d/o, CV disease, Clotting or hematology d/o, History of seizure, syncope, or drop attacks, Leg Cramps, October 2023, [facility] [place], MR/MR head/brain wo/w con IMPRESSION: 1. 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 No definite pineal cyst is visualized on MRI. 2. No intracranial mass lesion, pathologic enhancement, space-occupying process, mass effect or hydrocephalus. 3. Small developmental venous anomaly in the anterior right temporal lobe. Headache questionnaire:? 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 Associated symptoms? Photophobia (w/wo FISHER), phonophobia, ipsilateral ear presusre (w/wo FISHER), nausea, not right in space dizziness, fatigue, difficulty concentrating, activity intolerance. Redness above bilateral eyebrows. Postdrome: Residual- phases out Triggers: No clear triggers. Standing up exacerbates headache. Time of day: Often in the morning, can wake up with the FISHER or occurs a few hrs later when at work Duration and Frequency: Last attack lasted 2 months- this attack was more severe, he had to take a RACHELL from work. Attack prior was in Apr 2023- lasted 1-2 weeks. He otherwise has 4 more mild-moderate attacks per month. How does headache impact your life? Has had to miss work and family obligations. Current acute medication use/interventions: Tylenol, Sumatriptan- helps if low level. Current preventative medication use: None Non-pharmacological interventions: Rest, Migraine Ice cap, Hydrogen peroxide in his ear. Lifestyle considerations: Sleep routine: Bedtime: 11pm Wake-up time: 7am Sleep difficulties: Sleeps ok w/ CPAP. Some restless sleep. 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 Family planning: none. [facility]LY [facility] Medical History Helicobacter pylori (H. pylori) GERD (gastroesophageal reflux disease) Anxiety and depression Migraine Diabetes Surgical History No pertinent past surgical history Family History Father No problems noted. Mother Asthma Fibromyalgia Anxiety and depression Social History Housing: House Alcohol intake: current Alcohol intake frequency: holidays/special occasions only Patient Tobacco Use Status: Never used Tobacco e-Cigarette/Vaping Use: Never Used service: No Current occupational status: employed Current occupation: [employer] Cognitive needs: No Hearing needs: No Vision needs: No Physical Exam Vital Signs: BMI result Body Mass Index 35.8 Const Orientation/consciousness: patient oriented x3 HEENT Other: No palpable scalp tenderness. Head: Yes normocephalic Resp Effort & Inspection: normal respiratory effort and able to speak in complete sentences Neuro Other: Photophobic. Bilateral posterior cervical tightness. Cervical ROM: slightly limited Left Spurling: normal Right Spurling: normal. General: patient oriented x3 Cranial nerves: Yes CN's II-XII intact bilaterally Cognition (Neuro): normal cognition Gait exam (Neuro): Normal gait present Motor exam (neuro): 5/5 motor strength present throughout Deep tendon reflexes (DTR's): Right triceps reflex intensity grade: 2+, Left triceps reflex intensity grade: 2+, Rt Biceps (C5, C6): 2+, Left biceps reflex intensity grade: 2+, Right brachioradialis reflex intensity grade: 2+, Left brachioradialis reflex intensity grade: 2+, Right patellar reflex intensity grade: 2+ and Left patellar reflex intensity grade: 2+ Coordination: [id number] test normal, tandem gait normal and Romberg test negative Pupils: Normal pupillary reactivity/response: bilateral Psych Appearance: grossly normal Mental Status: mental status grossly normal Speech and movement: Normal speech and movement present Affect: normal affect Attitude: cooperative Thought process: Normal thought process present Assessment & Plan Assessment & Plan (1) Headache: Code(s): R51.9 - Headache, unspecified Category: Medical (2) Fatigue: Code(s): R53.83 - Other fatigue Category: Medical (3) Developmental venous anomaly, cerebral: Code(s): Q28.3 - Other malformations of cerebral vessels Category: Medical (4) Sleep apnea: Code(s): G47.30 - Sleep apnea, unspecified Category: Medical Plan Unilateral headache w/ migrainous features, brain MRI reports shows small DVA and prominent randy cisterna magna in the posterior fossa- likely benign, however pt has atypical headache presentation of prolonged duration, facial redness, and severity, thus we do need to exclude secondary causes, and have advised pt to undergo: Brain MRA w/o Brain MRV w/wo C-spine X-ray Lab work-up- also for paresthesias. Pt advised to have eye exam. For VERN: Pt asks if we can assist w/ obtaining new PAP supplies. Will reach out to [facility]. For hand paresthesias: Trial BUE wrist splints at night- order given to pt. If ineffective, consider further work-up. For overall headache management: Optimize good self-care, including but not limited to maintaining a healthy diet, adequate fluid intake, adequate sleep, and engaging in regular physical activity. Track headaches, especially after any treatment regimen changes. Migraine [employer] is one of many headache tracking apps. Light sensitivity tips: Patient may try blue light filtering glasses, green glasses, green light therapy. For acute headache treatment: Discussed importance of taking acute medications at the first sign of headache, however stressed importance of avoiding acute medication overuse. Trial increasing Sumatriptan from 50mg to 100mg prn, max 2 tabs per day. Potential adverse effects of triptans, including but not limited to nausea, fatigue, chest tightness/tingling (usually passes within a few minutes), medication overuse headaches. Previous acute migraine medication trials: No other Acute migraine medication contraindications: None at this time For headache prevention medication: Preventative medications should be taken routinely as prescribed for best effect, it may take several weeks for full effect to take effect. Start Riboflavin 400mg qam Continue Magnesium w/ goal of 400-500mg qhs Start Topiramate 25-50mg qhs- as this may promote weight loss. Potential adverse effects of Topiramate, including but not limited to fatigue, cognitive changes, paresthesias (tingling), vision changes, kidney stones. Previous migraine prevention medication trials: Only OTC Mag. Migraine prevention medication contraindications: BBs d/t insulin dependent diabetes. F/u upon review of above and in-clinic in 3 months or sooner prn. Case discussed w/ Dr Fatimah Flood. Orders: Orders CRP High Sensitivity 01/07/24 R20.2 - Paresthesia of skin, R51.9 - Headache, unspecified, F41.1 - Generalized anxiety disorder, E11.65 - Type 2 diabetes mellitus with hyperglycemia Erythrocyte Sedimentation Rate 01/07/24 R20.2 - Paresthesia of skin, R51.9 - Headache, unspecified, F41.1 - Generalized anxiety disorder, E11.65 - Type 2 diabetes mellitus with hyperglycemia Homocysteine 01/07/24 R20.2 - Paresthesia of skin, R51.9 - Headache, unspecified, F41.1 - Generalized anxiety disorder, E11.65 - Type 2 diabetes mellitus with hyperglycemia Vitamin A 01/07/24 R20.2 - Paresthesia of skin, R51.9 - Headache, unspecified, F41.1 - Generalized anxiety disorder, E11.65 - Type 2 diabetes mellitus with hyperglycemia Vitamin B1 01/07/24 R20.2 - Paresthesia of skin, R51.9 - Headache, unspecified, F41.1 - Generalized anxiety disorder, E11.65 - Type 2 diabetes mellitus with hyperglycemia Vitamin B5 (Pantothenic Acid) 01/07/24 R20.2 - Paresthesia of skin, R51.9 - Headache, unspecified, F41.1 - Generalized anxiety disorder, E11.65 - Type 2 diabetes mellitus with hyperglycemia Vitamin C 01/07/24 R20.2 - Paresthesia of skin, R51.9 - Headache, unspecified, F41.1 - Generalized anxiety disorder, E11.65 - Type 2 diabetes mellitus with hyperglycemia TSH reflex Free T4 01/07/24 R53.83 - Other fatigue, E11.65 - Type 2 diabetes mellitus with hyperglycemia, E66.09 - Other obesity due to excess calories, Z68.36 - Body mass index [BMI] 36.0-36.9, adult Lipid Panel with Reflex 01/07/24 R53.83 - Other fatigue, E11.65 - Type 2 diabetes mellitus with hyperglycemia, E66.09 - Other obesity due to excess calories, Z68.36 - Body mass index [BMI] 36.0-36.9, adult Ferritin 01/07/24 R20.2 - Paresthesia of skin, R51.9 - Headache, unspecified, F41.1 - Generalized anxiety disorder, E11.65 - Type 2 diabetes mellitus with hyperglycemia Methylmalonic Acid 01/07/24 R20.2 - Paresthesia of skin, R51.9 - Headache, unspecified, F41.1 - Generalized anxiety disorder, E11.65 - Type 2 diabetes mellitus with hyperglycemia IRON PROFILE 01/07/24 R20.2 - Paresthesia of skin, R51.9 - Headache, unspecified, F41.1 - Generalized anxiety disorder, E11.65 - Type 2 diabetes mellitus with hyperglycemia Vitamin B2 (Riboflavin) 01/07/24 R20.2 - Paresthesia of skin, R51.9 - Headache, unspecified, F41.1 - Generalized anxiety disorder, E11.65 - Type 2 diabetes mellitus with hyperglycemia Vitamin B3 (Niacin) 01/07/24 R20.2 - Paresthesia of skin, R51.9 - Headache, unspecified, F41.1 - Generalized anxiety disorder, E11.65 - Type 2 diabetes mellitus with hyperglycemia Vitamin B6 01/07/24 R20.2 - Paresthesia of skin, R51.9 - Headache, unspecified, F41.1 - Generalized anxiety disorder, E11.65 - Type 2 diabetes mellitus with hyperglycemia Vitamin E 01/07/24 R20.2 - Paresthesia of skin, R51.9 - Headache, unspecified, F41.1 - Generalized anxiety disorder, E11.65 - Type 2 diabetes mellitus with hyperglycemia Vitamin K1 01/07/24 R20.2 - Paresthesia of skin, R51.9 - Headache, unspecified, F41.1 - Generalized anxiety disorder, E11.65 - Type 2 diabetes mellitus with hyperglycemia Medications: New topiramate 25 - 50 mg (1 - 2 x 25 mg) PO BEDTIME 60 tabs 3RF 30 days riboflavin (vitamin B2) 400 mg PO DAILY 30 tabs 6RF 30 days sumatriptan succinate 50 - 100 mg orally at onset of headache, may repeat in 2 hrs PRN; max 2 tabs per day or 4 tabs/week (december take with Tylenol) 12 tabs 6RF migraine headache 30 days [Bilateral carapl tunnel wrist splint] Use nightly while sleeping 2 ea 0RF G56.00 - Carpal tunnel syndrome, unspecified upper limb Coding Level of Care Code New Pt Level 4 (05289) Diagnoses Headache R51.9 Fatigue R53.83 Developmental venous anomaly, cerebral Q28.3 Sleep apnea G47.30
[2024-01-03 08:21] VITALS: BMI 35.8
== END 2024-01-03 10:05 | disposition home or self-care (01) ==
PROVIDERS: PCP Physician Assistant; Visit Provider Nurse Practitioner Family
DX: R51.9 Headache, unspecified (principal); R53.83 Other fatigue; Q28.3 Other malformations of cerebral vessels; G47.30 Sleep apnea, unspecified
CPT/HCPCS: 99204

== ENCOUNTER → 2024-01-03 08:17 | Outpatient (BNVA) | payer OTHER, SELFPAY | PROVIDERS: PCP Physician Assistant; Visit Provider Nurse Practitioner Family ==

== ENCOUNTER 2024-01-07 07:16 | Outpatient (REF) | payer OTHER, SELFPAY ==
[2024-01-07 08:45] LABS: Erythrocyte Sedimentation Rate 11 MM/HR (0-15)
[2024-01-07 09:02] LABS: Cholesterol 247 mg/dL (<200); HDL Cholesterol 45 mg/dL (>40); Iron 98 mcg/dL (45-160); LDL Cholesterol Calculated 159 mg/dL (<100); Percent Iron Saturation 31 % (15-50); Total Iron Binding Capacity 318 mcg/dL (228-428); Triglycerides 215 mg/dL (<150); Unsaturated Iron Binding 220 ug/dL
[2024-01-07 09:03] LABS: Ferritin 144 ng/mL (20-250); TSH reflex Free T4 1.46 uIU/mL (0.32-4.0)
[2024-01-07 12:34] LABS: Reflex LDLD? No
[2024-01-08 18:09] LABS: Homocysteine 7.4 umol/L (<11.4)
[2024-01-08 19:23] LABS: CRP High Sensitivity 2.5 mg/L
[2024-01-11 16:19] LABS: Vitamin K1 1378 pg/mL (130-1500)
[2024-01-11 17:58] LABS: Alpha-Tocopherol 14.9 mg/L (5.7-19.9); Beta-Gamma Tocopherol 1.2 mg/L (<=4.3)
[2024-01-12 04:19] LABS: Methylmalonic Acid 101 nmol/L (87-318)
[2024-01-12 09:29] LABS: Vitamin A 38 mcg/dL (38-98)
[2024-01-12 16:28] LABS: Vitamin B6 28.8 ng/mL (2.1-21.7)
[2024-01-13 06:43] LABS: Vitamin B1 11 nmol/L (8-30)
[2024-01-13 18:03] LABS: Nicotinamide 33 ng/mL (see note); Vit B3 - Nicotinic Acid <20 ng/mL (see note)
[2024-01-13 19:14] LABS: Vitamin C 0.6 mg/dL (0.2-2.1)
[2024-01-14 19:18] LABS: Vitamin B5 (Pantothenic Acid) 59 ng/mL (<275)
== END 2024-01-07 07:17 | disposition home or self-care (01) ==
LOC: HO.LAB 07:16
PROVIDERS: Absent Provider Physician Assistant; PCP Physician Assistant; Visit Provider Nurse Practitioner Family
DX: E11.65 Type 2 diabetes mellitus with hyperglycemia (principal); R20.2 Paresthesia of skin; R51.9 Headache, unspecified; F41.1 Generalized anxiety disorder; E66.09 Other obesity due to excess calories; Z68.36 Body mass index [BMI] 36.0-36.9, adult; R53.83 Other fatigue
CPT/HCPCS: 36415; 80061; 82180; 82728; 83090; 83540; 83921; 84207; 84252; 84425; 84443; 84446; 84590; 84591; 84597; 85652; 86141

== ENCOUNTER 2024-01-14 10:22 | Outpatient (REF) | payer OTHER, SELFPAY ==
--- NOTE | 2024-01-14 10:25 | EMG_ITS ---
Bilateral median and ulnar motor and sensory studies were performed. Bilateral radial and median and lateral antecubital brachial sensory studies were performed and paraspinal muscles were tested with a needle. IMPRESSION: Mild bilateral median neuropathy across carpal tunnel. MD HEIDI Araiza/DEIDRE / [id number]
== END 2024-01-14 10:23 | disposition home or self-care (01) ==
LOC: HO.NEURO 10:22
PROVIDERS: PCP Physician Assistant; Visit Provider Physician Assistant
DX: R20.2 Paresthesia of skin (principal)
CPT/HCPCS: 95886; 95913

== ENCOUNTER 2024-01-31 07:56 | Outpatient (REF) | payer OTHER, SELFPAY ==
--- NOTE | ~2024-01-31 | US_ITS ---
EXAMINATION: US ABDOMEN LIMITED CLINICAL INFORMATION: Cholesterolosis of gallbladder. COMPARISON: Ultrasound abdomen complete 06/18/2023. TECHNIQUE: Real-time imaging of the right upper quadrant abdominal viscera. FINDINGS: PANCREAS: Visualized portions of the pancreas are unremarkable. The pancreatic tail is obscured by bowel gas. LIVER: The liver is normal in size. The liver contour is normal. Moderately increased parenchymal echogenicity with focal fatty sparing compatible with hepatic steatosis. No focal hepatic lesion. There is no intrahepatic biliary duct dilatation seen. GALLBLADDER: A 5 mm pedunculated, ball on the wall gallbladder polyp, extremely low risk, no follow-up imaging recommended, unchanged in size. The gallbladder is physiologically distended without evidence of stones, sludge, wall thickening or pericholecystic fluid. COMMON BILE DUCT: Normal in caliber measuring 0.3 cm in diameter. RIGHT KIDNEY: Normal. No hydronephrosis. No renal calculi or focal parenchymal lesions. The kidney measures 10.5 cm in maximum dimension. FREE FLUID: None. US/US abdomen limited IMPRESSION: 1. A 5 mm pedunculated, ball on the wall gallbladder polyp, extremely low risk, no follow-up imaging recommended, unchanged in size. 2. Hepatic steatosis similar to prior. 3. Visualized portions of the pancreas are unremarkable. The pancreatic tail is obscured by bowel gas.
== END 2024-01-31 07:57 | disposition home or self-care (01) ==
LOC: HO.US 07:56
PROVIDERS: PCP Physician Assistant; Visit Provider Surgery
DX: K82.4 Cholesterolosis of gallbladder (principal)
CPT/HCPCS: 76705

== ENCOUNTER 2024-02-05 09:52 | Emergency (ER) | payer OTHER, SELFPAY ==
[2024-02-05 09:54] VITALS: PULSE 80; RESP 16; TEMP 36; O2SAT 98; BMI 37.1
--- NOTE | 2024-02-05 09:59 | ED.EXTPRO ---
HPI - Extremity Problem General Chief complaint: Extremity Injury, Upper Stated complaint: arm pain Time Seen by Provider: 02/05/24 09:59 Source: patient Mode of arrival: ambulatory Limitations: no limitations History of Present Illness ED Provider: Maribel Kruse PA-C HPI Narrative: Patient is a 38 year old assigned male at with a history of RENAY, MDD, DM, and migraines presenting to the emergency department today with left elbow pain. Patient states that over the last 2 days his left lateral elbow has been bothering him. Patient states that he lifts things frequently at work but has no known trauma to the area. Patient states that it was more painful yesterday and somewhat better today as he can now extend it fully. Patient denies any dizziness, lightheadedness, abdominal pain, nausea, vomiting, fever, chills, blurry vision, double vision, loss of vision, chest pain, difficulty breathing, shortness of breath, back pain, night sweats, pain with urination, increased urinary frequency, increased urinary urgency, blood in his urine or stool, syncope or a near syncopal episode, recent trauma or falls, bowel incontinence, bladder incontinence, or any other complaints at this time. MD Complaint: extremity pain Onset (ago): day(s) (2) Pain Consistency: constant Location: left and upper extremity Severity scale (1-10): 4 Quality: aching Radiation: distal Relieving factors: nothing Exacerbating factors: range of motion Associated symptoms: denies other symptoms Related Data Home Medications ?Medication ?Instructions ?Recorded ?Confirmed blood sugar diagnostic (FreeStyle 05/21/23 01/03/24 Lite Strips) Previous Rx's ?Medication ?Instructions ?Recorded simethicone 80 mg chewable tablet 80 mg PO TID-QID PRN abdominal 09/05/23 (Gas Relief (simethicone)) distention #120 tabs cholecalciferol (vitamin D3) 50 50 mcg PO DAILY #90 caps 11/04/23 mcg (2,000 unit) capsule azelastine 205.5 mcg (0.15 %) 1 spray intranasal BID 30 days #30 12/31/23 nasal spray mL diclofenac sodium 1 % topical gel 2 g topical QID 30 days #100 grams 12/31/23 insulin glargine 100 unit/mL (3 10 unit (0.1 mL) subcut QPM 30 12/31/23 mL) subcutaneous pen (Lantus #15 mL Solostar U-100 Insulin) omeprazole 20 mg capsule,delayed 20 mg PO DAILY 30 days #30 caps 12/31/23 release ondansetron 4 mg disintegrating 4 mg PO Q6H PRN nausea and 12/31/23 tablet vomiting 7 days #28 tabs pen needle, diabetic 32 gauge x #50 ea 12/31/2332 (BD Ultra-Fine Krystal Pen Needle) Bilateral carapl tunnel wrist #2 ea 01/03/24 splint riboflavin (vitamin B2) 400 mg 400 mg PO DAILY 30 days #30 tabs 01/03/24 tablet sumatriptan succinate 100 mg tablet 50 - 100 mg (0.5 - 1 x 100 mg) PO 01/03/24 .COMPLEX PRN migraine headache 30 days #12 tabs topiramate 25 mg tablet 25 - 50 mg (1 - 2 x 25 mg) PO 01/03/24 BEDTIME 30 days #60 tabs sumatriptan succinate 50 mg tablet See Rx Instructions PO .COMPLEX 30 01/07/24 days #10 tabs naproxen 500 mg tablet 500 mg PO BID 7 days #14 tabs 02/05/24 Allergies Allergy/AdvReac Type Severity Reaction Status Date / Time Penicillins [PENICILLINS] Allergy Mild UNSURE Verified 02/05/24 09:55 Seasonal Allergies Allergy Unknown Unknown Verified 02/05/24 09:55 semaglutide [From Ozempic] AdvReac Intermediate Nausea Verified 02/05/24 09:55 Review of Systems Constitutional: Constitutional: Reports no additional constitutional complaints, Denies chills, Denies fever(s) and Denies night sweats Eyes: Eyes: Reports no additional eye complaints, Denies blurry vision, Denies change in vision, Denies diplopia, Denies eye discharge, Denies loss of vision and Denies eye pain ENT: Denies dizziness Cardiovascular: Cardiovascular: Reports no additional cardiovascular complaints, Denies chest pain, Denies lightheadedness, Denies Loss of Consciousness and Denies dyspnea Respiratory: Respiratory: Reports no additional respiratory complaints and Denies dyspnea Gastrointestinal: Gastrointestinal: Reports no additional gastrointestinal complaints, Denies abdominal pain, Denies melena, Denies hematochezia, Denies change in bowel habits and Denies change in stool character Genitourinary: Genitourinary: Reports no additional male genitourinary complaints, Denies hematuria, Denies oliguria, Denies difficulty urinating, Denies dysuria, Denies urinary frequency, Denies urinary hesitancy, Denies urinary incontinence and Denies urinary urgency Musculoskeletal: Musculoskeletal: Reports no additional musculoskeletal complaints, Denies numbness and Denies tingling Comments: left elbow pain Neurologic: Denies dizziness, Denies loss of vision, Denies numbness and Denies tingling Psychiatric: Psychiatric: Reports no additional psychiatric complaints Endocrine: Endocrine: Reports no additional endocrine complaints Hematologic/Lymphatic: Hematologic/Lymphatic: Reports no additional hematologic/lymphatic complaints Allergic/Immunologic: Allergic/Immunologic: Reports no additional allergic/immunologic complaints PMFSH Past Medical History Attestation statement: The following information was validated with the patient. Source: old records reviewed and nursing notes reviewed Medical History Helicobacter pylori (H. pylori) GERD (gastroesophageal reflux disease) Anxiety and depression Migraine Diabetes Surgical History No pertinent past surgical history Family History Family History Father No problems noted. Mother Asthma Fibromyalgia Anxiety and depression Social History Social History Housing: House Alcohol intake: current Alcohol intake frequency: holidays/special occasions only Patient Tobacco Use Status: Never used Tobacco e-Cigarette/Vaping Use: Never Used Advance Directives: No Advance Directives Information Provided: No service: No Current occupational status: employed Current occupation: [employer] Cognitive needs: No Hearing needs: No Vision needs: No Physical Exam Vital Signs: Vital Signs: Last Vital Signs Temp 96.8 F 02/05/24 10:30 Pulse 80 02/05/24 10:30 Resp 16 02/05/24 10:30 BP 0/0 L 02/05/24 10:30 Pulse Ox 98 02/05/24 10:30 O2 Del Method Room Air 02/05/24 10:30 BMI result Body Mass Index 37.1 Const: General: cooperative, no acute distress, alert and awake Nutritional Appearance: well nourished Orientation/consciousness: patient oriented x3 Limitations: no limitations HEENT: Head: Yes normal to inspection and Yes atraumatic Ears: hearing grossly normal bilaterally and external ears normal General nose exam: Normal external nose present, no nasal discharge noted and no epistaxis Face and sinus: Yes normal facial exam, No abrasion and No laceration Mouth: Normal oral and palatal mucosa present, no drooling and no muffled voice Eyes: General: appearance normal, both eyes and all related structures Periorbital: periorbital findings normal Eyelids: Yes eyelids normal Conjunctivae: conjunctivae normal Pupils: Equal, round and reactive pupils present EOM: EOMs intact bilaterally Neck: Neck: Yes normal visual inspection, Yes full ROM and Yes no lymphadenopathy Chest: Chest palpation & inspection: normal inspection of the chest Resp: Effort & Inspection: normal respiratory effort and able to speak in complete sentences GI: Inspection: Yes normal to inspection Neuro: General: patient oriented x3 and moves all extremities Cranial nerves: Yes Equal, round and reactive pupils present Cognition (Neuro): normal cognition Extrem: Other: K tape present to the lateral left elbow - pain with ROM of the left elbow General: Yes full ROM and Yes capillary refill normal Psych: Appearance: grossly normal Mental Status: mental status grossly normal Affect: normal affect Attitude: cooperative Thought process: Normal thought process present Thought content: Normal thought content present Insight: Good insight present (Psych) Medications Administered Discontinued Medications Generic Name Dose Route Start Last Admin Trade Name Freq PRN Reason Stop Dose Admin Ketorolac Tromethamine 15 mg 02/05/24 10:02 02/05/24 10:21 Ketorolac Tromethamine 15 Mg/Ml Vial IM 02/05/24 10:03 15 mg ONCE ONE Administration Medical Decision Making Medical Decision Making [facility] Narrative: Patient is a 38 year old assigned male at with a history of RENAY, MDD, DM, and migraines presenting to the emergency department today with left elbow pain. Patient's physical exam was as noted in the physical exam portion of this note. I explained my physical exam findings to the patient. I answered all questions asked by the patient. I stressed the importance of the patient taking his medication as directed (either prescribed or as the over the counter packaging recommends). I stressed the importance of the patient following up with his primary care provider and an orthopedic provider. I stressed the importance of the patient returning to the emergency department immediately if his symptoms were to worsen or if he were to develop any dizziness, shortness of breath, difficulty breathing, chest pain, blurry vision, loss of vision, nausea, vomiting, abdominal pain, fever, chills, back pain, or any other complaints. Patient verbalized agreement and understanding with this treatment plan and discharge. Differential Diagnosis Differential Diagnoses: The differential diagnosis associated with the presentation includes Left elbow pain Cubital tunnel Tennis elbow Admission/Observation Consideration of admission/observation: Escalation of care including admission/observation considered Patient would have been admitted to the hospital had his work up had any findings where hospital admission was appropriate and his clinical presentation warranted hospital admission. Tests considered The following testing was considered but not selected: I considered getting an x-ray of the left elbow however, the patient's current clinical presentation did not warrant this. I discussed this with the patient who verbalized agreement and understanding. Prescription Management I considered prescription management with: Pain Medication (patient prescribed pain medication.) Discharge Plan Discharge Clinical Impression: Elbow pain Patient Disposition: Home, Self-Care Instructions: Cubital Tunnel Syndrome (ED), Elbow Sprain (ED) Additional Instructions: Follow up with your primary care provider and an orthopedic provider. Return to the emergency department immediately if your symptoms worsen or if you develop any dizziness, shortness of breath, difficulty breathing, chest pain, blurry vision, loss of vision, nausea, vomiting, abdominal pain, fever, chills, back pain, or any other complaints. Prescriptions: New naproxen 500 mg tablet 500 mg PO BID 7 Days Qty: 14 0RF No Action sumatriptan succinate 50 mg tablet See Rx Instructions PO .COMPLEX 30 Days Qty: 10 0RF Rx Instructions: take 1 tab at onset of headache; if no relief may repeat 1 tab after at least 2 hrs; max = 4 tabs/24 hr PO (DME) FreeStyle Lite Strips Strip See Rx Instructions .Route Rx Instructions: As directed omeprazole 20 mg capsule,delayed release(DR/EC) 20 mg PO DAILY 30 Days Qty: 30 2RF ondansetron 4 mg tablet,disintegrating 4 mg PO Q6H PRN (Reason: nausea and vomiting) 7 Days Qty: 28 3RF insulin glargine [Lantus Solostar U-100 Insulin] 100 unit/mL (3 mL) insulin pen 10 unit subcut QPM 30 Days Qty: 15 1RF (DME) pen needle, diabetic [BD Ultra-Fine Krystal Pen Needle] 32 gauge x 5/32 needle See Rx Instructions .ROUTE .MEDSUPPLY Qty: 50 1RF Rx Instructions: As directed diclofenac sodium 1 % gel 2 g topical QID 30 Days Qty: 100 1RF Rx Instructions: apply to single elbow, wrist or hand; for hand includes palm/fingers/back of hand azelastine 205.5 mcg (0.15 %) spray,non-aerosol 1 spray intranasal BID 30 Days Qty: 30 3RF Rx Instructions: administer into each nostril simethicone [Gas Relief (simethicone)] 80 mg tablet,chewable 80 mg PO TID-QID PRN (Reason: abdominal distention) Qty: 120 4RF topiramate 25 mg tablet 25 - 50 mg PO BEDTIME 30 Days Qty: 60 3RF riboflavin (vitamin B2) 400 mg tablet 400 mg PO DAILY 30 Days Qty: 30 6RF sumatriptan succinate 100 mg tablet 50 - 100 mg PO .COMPLEX PRN (Reason: migraine headache) 30 Days Qty: 12 6RF Rx Instructions: 50 - 100 mg orally at onset of headache, may repeat in 2 hrs PRN; max 2 tabs per day or 4 tabs/week (may take with Tylenol) (DME) Bilateral carapl tunnel wrist splint Med-Large See Rx Instructions .Route .MEDSUPPLY Qty: 2 0RF Rx Instructions: Use nightly while sleeping cholecalciferol (vitamin D3) 50 mcg (2,000 unit) capsule 50 mcg PO DAILY Qty: 90 3RF Referrals: [facility] [Provider Group] (Call to establish and follow up with an orthopedic provider about your left elbow.) Juancarlos Meyer PA-C [Primary Care Provider] - Stand Alone Forms: Work/School Release Interventions: ED Discharge Assessment Last Done: 02/05/24 10:30 Discharge Date/Time: 02/05/24 10:33 Print Language: Citizen Of [place]
[2024-02-05] MEDS: Ketorolac Tromethamine 15 MG/ML VIAL IM (10:21)
[2024-02-05 10:30] VITALS: BP 0/0; PULSE 80; RESP 16; TEMP 36; O2SAT 98
== END 2024-02-05 10:33 | disposition home or self-care (01) ==
PROVIDERS: Emergency Provider Emergency Medicine; PCP Physician Assistant
DX: M25.522 Pain in left elbow (principal); E11.9 Type 2 diabetes mellitus without complications
CPT/HCPCS: 96372; 99283; 99284; J1885

== ENCOUNTER 2024-02-25 11:08 | Outpatient (AMB) | payer OTHER, SELFPAY ==
--- NOTE | 2024-02-25 11:16 | A.OFFVIS_ITS ---
Vital Signs 02/25/24 11:21 Height 5 ft 6 in Weight 228 lb BMI 36.8 BP 123/75 Blood Pressure Location Rt brachial Position Sitting Pulse 82 Intake Visit Reasons: s/p US Intake Note: Patient here to discuss Abd US on 01-31-24 results. Patient was last seen for RUQ pain on 06-25-23. Patient c/o: denies abd pain. No longer taking ozempic. Medical Or Surgical Instrument Maker Required: No Accompanied by: Self / Same As Patient Allergies Penicillins [PENICILLINS] Allergy (Mild, Verified 02/25/24 11:20) UNSURE Seasonal Allergies Allergy (Unknown, Verified 02/25/24 11:20) Unknown semaglutide [From Ozempic] Adverse Reaction (Intermediate, Verified 02/25/24 11:20) Nausea HPI Comments Details: Patient was presents for follow-up surveillance gallbladder polyp. He has no abdominal issues or complaints. Tolerating a diet. Having regular bowel habits. Follow-up ultrasound demonstrates status quo gallbladder polyp . [facility] Medical History Helicobacter pylori (H. pylori) GERD (gastroesophageal reflux disease) Anxiety and depression Migraine Diabetes Surgical History No pertinent past surgical history Family History Father No problems noted. Mother Asthma Fibromyalgia Anxiety and depression Social History Housing: House Alcohol intake: current Alcohol intake frequency: holidays/special occasions only Patient Tobacco Use Status: Never used Tobacco e-Cigarette/Vaping Use: Never Used service: No Current occupational status: employed Current occupation: [employer] Cognitive needs: No Hearing needs: No Vision needs: No Physical Exam Vital Signs: Last Vital Signs Pulse 82 02/25/24 11:21 BP 123/75 02/25/24 11:21 BMI result Body Mass Index 36.8 GI Other: Abdomen mildly corpulent, soft, benign Assessment & Plan Assessment & Plan (1) Gallbladder polyp: Code(s): K82.4 - Cholesterolosis of gallbladder Category: Surgical Plan Current plan is to repeat a gallbladder sonogram in 1 year's time indirect further therapy based on these results. Patient will see me after the study. All questions answered Coding Level of Care Code Est Pt Level 4 (26796) Diagnoses Gallbladder polyp K82.4
[2024-02-25 11:21] VITALS: BP 123/75; PULSE 82; BMI 36.8
== END 2024-02-25 11:26 | disposition home or self-care (01) ==
PROVIDERS: PCP Physician Assistant; Visit Provider Surgery
DX: K82.4 Cholesterolosis of gallbladder (principal)
CPT/HCPCS: 99213

== ENCOUNTER → 2024-02-25 11:08 | Outpatient (BNVA) | payer OTHER, SELFPAY | PROVIDERS: PCP Physician Assistant; Visit Provider Surgery ==

== ENCOUNTER 2024-03-06 08:21 | Emergency (ER) | payer OTHER, SELFPAY ==
[2024-03-06 08:28] VITALS: BP 118/75; PULSE 82; RESP 16; TEMP 36; O2SAT 97; BMI 35.5
[2024-03-06 08:45] LABS: MANUAL DIFF FLAG NO
[2024-03-06 08:50] LABS: Basophils Percent Auto 0.5 % (0-2); Eosinophils Absolute Auto 0.1 X10*3/uL (0.0-0.4); Eosinophils Percent Auto 1.8 % (0-4); Hematocrit 44.5 % (42.0-52.0); Imm Gran Abs Auto 0.04 X10*3/uL (0.00-0.03); Imm Gran Pct Auto 0.5 % (0.0-0.4); Lymphocytes Absolute Auto 2.7 X10*3/uL (1.2-4.9); Mean Corpuscular HGB Conc 33.7 g/dl (31.0-36.0); Mean Corpuscular Hemoglobin 29.1 pg (27.0-33.0); Mean Corpuscular Volume 86.4 fL (80.0-98.0); Mean Platelet Volume 8.7 fL (9.4-12.4); Monocytes Absolute Auto 0.6 X10*3/uL (0.1-1.2); Monocytes Percent Auto 7.9 % (2-11); Neutrophils Absolute Auto 4.1 x10*3/uL (2.0-8.3); Neutrophils Percent Auto 53.3 % (45-73); Platelet Count 330 X10*3/uL (160-400); Red Blood Count 5.15 X10*6/uL (4.60-5.80); Red Cell Distribution Width 13.3 % (11.0-16.0); White Blood Count 7.6 X10*3/uL (4.8-10.8)
[2024-03-06 09:01] LABS: Alanine Aminotransferase 43 U/L (0-40); Albumin Level 4.2 g/dL (3.5-5.0); Alkaline Phosphatase 94 U/L (39-117); Anion Gap 11 (12-20); Aspartate Amino Transferase 22 U/L (5-37); Bilirubin Direct 0.2 mg/dL (0.0-0.5); Bilirubin Total 0.5 mg/dL (0.0-1.0); Blood Urea Nitrogen 19 mg/dL (9-16); Calcium 9.3 mg/dL (8.4-10.2); Carbon Dioxide 27 mmol/L (22-29); Chloride 107 mmol/L (96-108); Creatinine Clr Calc Pharmacy 118.8; Estimated Glomerular Filt Rate > 60; Glucose Random 177 mg/dL (60-115); Lipase 23 U/L (8-78); Potassium 4.9 mmol/L (3.3-5.1); Sodium 140 mmol/L (135-145); Total Protein 7.4 g/dL (6.5-8.0)
--- NOTE | 2024-03-06 09:30 | PC.NURSE ---
pt a&ox3, vitals previously stable, labs drawn by triage tech, pt awaiting provider, call meredith within reach, will continue to monitor
--- NOTE | 2024-03-06 09:47 | ED_ITS ---
HPI - General Adult General Chief complaint: Abdominal Pain Stated complaint: l sided abd pain Time Seen by Provider: 03/06/24 09:15 History of Present Illness HPI narrative: Patient complains of several days of a burning itching feeling in the left side of his stomach, he is not having any acute stomach pain, no nausea vomiting or diarrhea, no dysuria He is eating and drinking normally and discomfort is mild He has a history of an ulcer in the past and takes omeprazole every night There is no chest pain no shortness of breath, no constipation no change to bowel or bladder urination is normal Related Data Home Medications ?Medication ?Instructions ?Recorded ?Confirmed blood sugar diagnostic (FreeStyle 05/21/23 02/25/24 Lite Strips) Previous Rx's ?Medication ?Instructions ?Recorded simethicone 80 mg chewable tablet 80 mg PO TID-QID PRN abdominal 09/05/23 (Gas Relief (simethicone)) distention #120 tabs cholecalciferol (vitamin D3) 50 50 mcg PO DAILY #90 caps 11/04/23 mcg (2,000 unit) capsule azelastine 205.5 mcg (0.15 %) 1 spray intranasal BID 30 days #30 12/31/23 nasal spray mL diclofenac sodium 1 % topical gel 2 g topical QID 30 days #100 grams 12/31/23 insulin glargine 100 unit/mL (3 10 unit (0.1 mL) subcut QPM 30 12/31/23 mL) subcutaneous pen (Lan #15 mL Solostar U-100 Insulin) omeprazole 20 mg capsule,delayed 20 mg PO DAILY 30 days #30 caps 12/31/23 release ondansetron 4 mg disintegrating 4 mg PO Q6H PRN nausea and 12/31/23 tablet vomiting 7 days #28 tabs pen needle, diabetic 32 gauge x #50 ea 12/31/23 (BD Ultra-Fine Krystal Pen Needle) Bilateral carapl tunnel wrist #2 ea 01/03/24 splint riboflavin (vitamin B2) 400 mg 400 mg PO DAILY 30 days #30 tabs 01/03/24 tablet sumatriptan succinate 100 mg tablet 50 - 100 mg (0.5 - 1 x 100 mg) PO 01/03/24 .COMPLEX PRN migraine headache 30 days #12 tabs topiramate 25 mg tablet 25 - 50 mg (1 - 2 x 25 mg) PO 01/03/24 BEDTIME 30 days #60 tabs sumatriptan succinate 50 mg tablet See Rx Instructions PO .COMPLEX 30 01/07/24 days #10 tabs naproxen 500 mg tablet 500 mg PO BID 7 days #14 tabs 02/05/24 cetirizine 10 mg tablet 10 mg PO DAILY PRN itching #10 tabs 03/06/24 Allergies Allergy/AdvReac Type Severity Reaction Status Date / Time Penicillins [PENICILLINS] Allergy Mild UNSURE Verified 03/06/24 08:32 Seasonal Allergies Allergy Unknown Unknown Verified 03/06/24 08:32 semaglutide [From Ozempic] AdvReac Intermediate Nausea Verified 03/06/24 08:32 PMF Past Medical History Source: nursing notes reviewed Medical History Helicobacter pylori (H. pylori) GERD (gastroesophageal reflux disease) Anxiety and depression Migraine Diabetes Surgical History No pertinent past surgical history Family History Family History Father No problems noted. Mother Asthma Fibromyalgia Anxiety and depression Social History Social History Housing: House Alcohol intake: current Alcohol intake frequency: holidays/special occasions only Patient Tobacco Use Status: Never used Tobacco e-Cigarette/Vaping Use: Never Used Advance Directives: No Advance Directives Information Provided: Yes service: No Current occupational status: employed Current occupation: [employer] Cognitive needs: No Hearing needs: No Vision needs: No Physical Exam ED Vital Signs: Vital Signs - 24 hr 03/06/24 08:28 Temperature 96.8 F Pulse Rate 82 Respiratory Rate 16 Blood Pressure 118/75 Pulse Oximetry 97 Oxygen Delivery Method Room Air BMI result Body Mass Index 35.5 General appearance comfortable cooperative no acute distress Eyes are anicteric no pallor The pharynx is clear, membranes are moist Neck is supple Respiratory no distress Chest clear to auscultation bilateral Abdomen is soft nontender no rebound no guarding no discomfort with abdominal exam Extremities full range of motion x4 Skin no rashes, no rashes on abdomen wall Course Course Course Narrative: Chemistries and CBC were sent with no acute or emergent findings Abdominal exam was repeated and completely nontender, patient is eating normally no nausea vomiting or diarrhea and main complaint is an itching feelings in the left side of the abdominal wall He is already taking an antacid and I added cetirizine to see if it helps with the itch sure if there could be some mild allergic component He will follow with his GI doctor and primary care Medical Decision Making Lab Data 03/06/24 08:38 03/06/24 08:38 Labs: Lab Results 03/06/24 Range/Units 08:38 WBC 7.6 (4.8-10.8) X10*3/uL RBC 5.15 (4.60-5.80) X10*6/uL Hgb 15.0 (14.0-18.0) g/dl Hct 44.5 (42.0-52.0) % MCV 86.4 (80.0-98.0) fL MCH 29.1 (27.0-33.0) pg MCHC 33.7 (31.0-36.0) g/dl RDW 13.3 (11.0-16.0) % Plt Count 330 (160-400) X10*3/uL MPV 8.7 L (9.4-12.4) fL Immature Gran % (Auto) 0.5 H (0.0-0.4) % Neut % (Auto) 53.3 (45-73) % Lymph % (Auto) 36.0 (20-40) % Tompkins % (Auto) 7.9 (2-11) % Eos % (Auto) 1.8 (0-4) % Baso % (Auto) 0.5 (0-2) % Lymph # (Auto) 2.7 (1.2-4.9) X10*3/uL Tompkins # (Auto) 0.6 (0.1-1.2) X10*3/uL Eos # (Auto) 0.1 (0.0-0.4) X10*3/uL Baso # (Auto) 0.0 (0.0-0.2) X10*3/uL Abs Immat Gran (auto) 0.04 H (0.00-0.03) X10*3/uL Absolute Neuts (auto) 4.1 (2.0-8.3) x10*3/uL Absolute Nucleated RBC 0.000 (0.0-0.012) X10*3/uL Nucleated RBC % (auto) 0.0 (0.0-0.2) /100WBC Sodium 140 (135-145) mmol/L Potassium 4.9 (3.3-5.1) mmol/L Chloride 107 (96-108) mmol/L Carbon Dioxide 27 (22-29) mmol/L Anion Gap 11 L (12-20) BUN 19 H (9-16) mg/dL Creatinine 0.95 (0.5-1.4) mg/dL Estim Creat Clear Calc 118.8 Estimated GFR > 60 Random Glucose 177 H (60-115) mg/dL Calcium 9.3 D (8.4-10.2) mg/dL Total Bilirubin 0.5 (0.0-1.0) mg/dL Direct Bilirubin 0.2 (0.0-0.5) mg/dL AST 22 (5-37) U/L ALT 43 H (0-40) U/L Alkaline Phosphatase 94 (39-117) U/L Total Protein 7.4 (6.5-8.0) g/dL Albumin 4.2 (3.5-5.0) g/dL Lipase 23 (8-78) U/L Discharge Plan Discharge Clinical Impression: Dyspepsia, Itching Patient Disposition: Home, Self-Care Additional Instructions: Your abdominal exam was very normal, labs were very reassuring, no sign of any dangerous or emergent condition now As itching is part of the problem it could be there is an allergic component so I prescribed cetirizine which may help with the itch If symptoms continue follow with primary doctor or your GI doctor Most important should you develop vomiting nausea abdominal pain any worse condition or any concern return to the ER any time Prescriptions: New cetirizine 10 mg tablet 10 mg PO DAILY PRN (Reason: itching) Qty: 10 0RF No Action sumatriptan succinate 50 mg tablet See Rx Instructions PO .COMPLEX 30 Days Qty: 10 0RF Rx Instructions: take 1 tab at onset of headache; if no relief may repeat 1 tab after at least 2 hrs; max = 4 tabs/24 hr PO naproxen 500 mg tablet 500 mg PO BID 7 Days Qty: 14 0RF (DME) FreeStyle Lite Strips Strip See Rx Instructions .Route Rx Instructions: As directed omeprazole 20 mg capsule,delayed release(DR/EC) 20 mg PO DAILY 30 Days Qty: 30 2RF ondansetron 4 mg tablet,disintegrating 4 mg PO Q6H PRN (Reason: nausea and vomiting) 7 Days Qty: 28 3RF insulin glargine [Lantus Solostar U-100 Insulin] 100 unit/mL (3 mL) insulin pen 10 unit subcut QPM 30 Days Qty: 15 1RF (DME) pen needle, diabetic [BD Ultra-Fine Krystal Pen Needle] 32 gauge x 5/32 needle See Rx Instructions .ROUTE .MEDSUPPLY Qty: 50 1RF Rx Instructions: As directed diclofenac sodium 1 % gel 2 g topical QID 30 Days Qty: 100 1RF Rx Instructions: apply to single elbow, wrist or hand; for hand includes palm/fingers/back of hand azelastine 205.5 mcg (0.15 %) spray,non-aerosol 1 spray intranasal BID 30 Days Qty: 30 3RF Rx Instructions: administer into each nostril simethicone [Gas Relief (simethicone)] 80 mg tablet,chewable 80 mg PO TID-QID PRN (Reason: abdominal distention) Qty: 120 4RF topiramate 25 mg tablet 25 - 50 mg PO BEDTIME 30 Days Qty: 60 3RF riboflavin (vitamin B2) 400 mg tablet 400 mg PO DAILY 30 Days Qty: 30 6RF sumatriptan succinate 100 mg tablet 50 - 100 mg PO .COMPLEX PRN (Reason: migraine headache) 30 Days Qty: 12 6RF Rx Instructions: 50 - 100 mg orally at onset of headache, may repeat in 2 hrs PRN; max 2 tabs per day or 4 tabs/week (may take with Tylenol) (DME) Bilateral carapl tunnel wrist splint Med-Large See Rx Instructions .Route .MEDSUPPLY Qty: 2 0RF Rx Instructions: Use nightly while sleeping cholecalciferol (vitamin D3) 50 mcg (2,000 unit) capsule 50 mcg PO DAILY Qty: 90 3RF Print Language: Tamazight
[2024-03-06 10:07] VITALS: BP 118/75; PULSE 82; RESP 16; TEMP 36; O2SAT 97
--- NOTE | 2024-03-06 10:09 | PC.NURSE ---
this patient was discharged by the provider DENISE Davis who printed his own dc instructions, no repeat vitals were performed by provider. signature page was not signed.
== END 2024-03-06 10:07 | disposition home or self-care (01) ==
PROVIDERS: Emergency Provider Student in an Organized Health Care Education/Training Program; PCP Physician Assistant
DX: R10.13 Epigastric pain (principal); L29.9 Pruritus, unspecified; E11.9 Type 2 diabetes mellitus without complications
CPT/HCPCS: 36415; 80048; 80076; 83690; 85025; 99282; 99283

== ENCOUNTER 2024-08-25 09:48 | Outpatient (AMB) | payer OTHER, SELFPAY ==
[2024-08-25 09:51] VITALS: BP 110/82; PULSE 78; TEMP 36.1; O2SAT 98; BMI 36.8
--- NOTE | 2024-08-25 09:51 | A.OFFPC_ITS ---
Vital Signs 08/25/24 09:51 Height 5 ft 6 in Weight 228 lb BMI 36.8 BP 110/82 Blood Pressure Location Lt brachial Position Sitting Pulse 78 Pulse Source Pulse Oximeter Temp 96.9 F Temp Source Temporal Artery Scan Pulse Oximetry (%) 98 Oxygen Delivery Method Room Air Intake Visit Reasons: PE [employer] Safety And Health Technician Required: No Accompanied by: Self / Same As Patient Allergies Penicillins [PENICILLINS] Allergy (Mild, Verified 08/25/24 09:59) UNSURE Seasonal Allergies Allergy (Unknown, Verified 08/25/24 09:59) Unknown semaglutide [From Ozempic] Adverse Reaction (Intermediate, Verified 08/25/24 09:59) Nausea Medication List - Last Reconciled 08/25/24 by Juancarlos Meyer PA-C azelastine 1 spray intranasal BID 30 days [Bilateral carapl tunnel wrist splint Use nightly while sleeping] blood sugar diagnostic (FreeStyle Lite Strips) As directed cetirizine 10 mg PO DAILY PRN cholecalciferol (vitamin D3) 50 mcg PO DAILY diclofenac sodium 1% 2 grams topical QID 30 days insulin glargine (Lantus Solostar U-100 Insulin) 10 units (0.1 mL) subcut QPM 30 days naproxen 500 mg PO BID 7 days omeprazole 20 mg PO DAILY 30 days ondansetron 4 mg PO Q6H PRN 7 days pen needle, diabetic (BD Ultra-Fine Krystal Pen Needle) As directed riboflavin (vitamin B2) 400 mg PO DAILY 30 days sennosides (Natural Senna Laxative) 17.2 mg (2 x 8.6 mg) PO BEDTIME simethicone (Gas Relief (simethicone)) 80 mg PO TID-QID PRN simethicone 125 mg PO BID-QID PRN sumatriptan succinate take 1 tab at onset of headache; if no relief may repeat 1 tab after at least 2 hrs; max = 4 tabs/24 hr PO 30 days sumatriptan succinate 50 - 100 mg orally at onset of headache, may repeat in 2 hrs PRN; max 2 tabs per day or 4 tabs/week (may take with Tylenol) 30 days topiramate 25 - 50 mg (1 - 2 x 25 mg) PO BEDTIME 30 days Tobacco use date assessed: 08/25/24 Dental Screening Dental Screen Date: 08/25/24 Did you have a dental visit in the last 12 months?: No Did you have a dental problem in the last 6 months where you did not have access to dental care?: No Was dental information given to patient?: No HPI PE HPI Details Patient is a 39 -year-old male here today for routine annual physical. Patient has a past medical history significant for type 2 diabetes, Sleep apnea, seasonal allergies. .. Chronic allergies: Continues to use [id number] allergy medication and nasal sprays much relief. He feels he has an inner ear issue. He has reestablish care with his ENT and has been started back on allergy injections. Of note does have obstructive sleep apnea and does use a CPAP machine on a nightly basis. He has been told his tonsils were enlarged which may be the caus e of some of his obstructive sleep apnea. .. Type 2 diabetes: Most recent A1c 7.2. He has stopped Ozempic which was attributing to some of his GI issues. He continues on Lantus daily. He reports he checks his sugar from time to time at home and reports 120s to 130s. .. Hyperlipidemia: Most recent lipid panel showing elevated total cholesterol and LDL. Was not interested in starting cholesterol medication at that point it would work on lifestyle and dietary modifications. Vaccine: Up-to-date with COVID vaccine, needs flu vaccine and pneumonia vaccine (is going for allergy injections and can not get vaccines at this time.) [facility] Medical History Helicobacter pylori (H. pylori) GERD (gastroesophageal reflux disease) Anxiety and depression Migraine Diabetes Surgical History No pertinent past surgical history Family History Father No problems noted. Mother Asthma Fibromyalgia Anxiety and depression Social History (Updated 08/25/24 @ 10:03 by Juancarlos Meyer PA-C) Housing: House Alcohol intake: current Alcohol intake frequency: holidays/special occasions only Patient Tobacco Use Status: Never used Tobacco e-Cigarette/Vaping Use: Never Used service: No Current occupational status: employed Current occupation: [employer]- [employer] Cognitive needs: No Hearing needs: No Vision needs: No Questionnaire PHQ-9 Over the last 2 weeks, how often have you been bothered by any of the following problems? 1. Little interest or pleasure in doing things: not at all 2. Feeling down, depressed, or hopeless: not at all 3. Trouble falling or staying asleep, or sleeping too much: not at all 4. Feeling tired or having little energy: not at all 5. Poor appetite or overeating: not at all 6. Feeling bad about yourself - or that you are a failure or have let yourself or your family down: not at all 7. Trouble concentrating on things, such as reading the newspaper or watching television: not at all 8. Moving or speaking so slowly that other people could have noticed. Or the opposite - being so fidgety or restless that you have been moving around a lot more than usual: not at all 9. Thoughts that you would be better off or of hurting yourself in some way: not at all Total score: 0 Depression Screening Interpretation: Negative Depression Screening Done: Yes 28395 - PHQ-9 Billing: Yes Source: Developed by Drs. Neville Augustin, Iram Hillman, Josaih Rodriguez and colleagues, with an educational ysabel from [employer]. Thrive Questionnaire Date Thrive assessed: 08/25/24 I am a: Patient What is your living situation today?: I have a steady place to live Within the past 12 months, did the food you bought not last and you didn't have the money to get more?: Never true Within the past 12 months, did you worry whether your food would run out before you got money to buy more?: Never true Do you have trouble paying for medicines?: No Do you have trouble getting transportation to medical appointments?: No Do you have trouble paying your heating and electricity bill?: No Do you have trouble taking care of your child, family member or friend?: No Do you have trouble with day-to-day activities such as bathing, preparing meals, shopping, managing finances, etc.?: No Are you currently unemployed and looking for a job?: No Are you interested in more education?: No Please select the resources that you would like help with: None Currently or been in a relationship where the following occur: No concerns repo rted THRIVE Score: 0 AUDIT C Alcohol Use Questionnaire (AUDIT-C) 1. How often do you have a drink containing alcohol?: Never 3. How often do you have six or more drinks on one occasion?: Never Total Score: 0 RENAY-7 AMB Questionnaire RENAY-7 Date RENAY - 7 assessed: 08/25/24 Feeling nervous, anxious, or on edge: 0 = Not at all Not being able to stop or control worryin = Not at all Worrying too much about different things: 0 = Not at all Trouble relaxin = Not at all Being so restless that it is hard to sit still: 0 = Not at all Becoming easily annoyed or irritable: 0 = Not at all Feeling afraid as if something awful might happen: 0 = Not at all Total RENAY-7 score (0-4 normal; 5-9 mild; 10-14 moderate; 15-21 severe): 0 Source: Developed by Drs. Neville Augustin, Iram Hillman, Josiah Rodriguez and colleagues, with an educational ysabel from [employer]. RENAY-7 Assessment Billing RENAY-7 Assessment Tool: RENAY-7 Assessment 44957 Review of Systems Const Denies body aches, Denies chills, Denies excessive sweating, Denies fatigue, Denies fever(s) and Denies headache(s) Eyes Denies blurry vision ENT Denies dysphagia, Denies vertigo, Denies dizziness, Denies headache(s), Denies hearing loss and Denies tinnitus Card Denies chest pain, Denies chest pain with activity, Denies syncope, Denies irregular heart rhythm and Denies dyspnea Resp Denies chest congestion, Denies cough, Denies hemoptysis, Denies dyspnea and Denies wheezing GI Denies abdominal pain, Denies melena, Denies hematochezia, Denies coffee ground emesis, Denies dysphagia, Denies diarrhea, Denies nausea and Denies vomiting Denies difficulty urinating, Denies dysuria, Denies urinary frequency, Denies urinary hesitancy and Denies urinary urgency Musc Denies arthralgias, Denies limited range of motion, Denies muscle cramps and Denies muscle weakness Skin/Breast Denies rash and Denies skin ulcer Neuro Denies Abnormal speech present, Denies confusion, Denies vertigo, Denies dizziness, Denies syncope, Denies headache(s), Denies memory loss and Denies seizure-like activity Psych Denies anxiety, Denies confusion, Denies depression, Denies memory loss, Denies panic attacks and Denies paranoia Endo Denies excessive sweating, Denies fatigue, Denies flushing, Denies polydipsia and Denies polyuria Aller/Immun Denies wheezing Physical exam (Primary Care) Vital Signs: Last Vital Signs Temp 96.9 F 08/25/24 09:51 Pulse 78 08/25/24 09:51 BP 110/82 08/25/24 09:51 Pulse Ox 98 08/25/24 09:51 Oxygen Delivery Method Room Air 08/25/24 09:51 BMI result Body Mass Index 36.8 BMI Assessment/Plan discussion: High BMI High, discussed plan: lifestyle, weight reduction, dietary and physical activity Tobacco/Smoking Status: Tobacco use Status Tobacco use date assessed 08/25/24 08/25/24 09:55 Patient Tobacco Use Status Never used Tobacco 08/25/24 09:55 e-Cigarette/Vaping Use Never Used 08/25/24 09:55 PHQ-9: PHQ-9 Score PHQ-9: Total score 0 08/25/24 09:55 Depression Screening Interpretation: Negative Thrive Assessment: Date of Thrive Assessment Date Thrive assessed 08/25/24 08/25/24 09:55 Currently or been in a relationship where the following occur: No concerns reported Const General: cooperative, comfortable, no acute distress, alert and awake; No confusion Orientation/consciousness: oriented to person, oriented to place, patient orient ed x3 and No confusion HENMT Head: Yes normocephalic Ears: external ears normal and TM's normal bilaterally Face and sinus: No sinus tenderness Mouth: Normal oral and palatal mucosa present and tongue normal Teeth and gingiva: dentition normal and gingiva normal Throat: Yes posterior oropharynx normal, Yes tonsils normal and Yes uvula midline Eyes Conjunctivae: conjunctivae normal Sclerae: sclerae normal Pupils: Equal, round and reactive pupils present EOM: EOMs intact bilaterally Direct Ophthalmoscopy: No no photophobia Neck Neck: Yes no lymphadenopathy, No tender and Yes no JVD Thyroid: Thyroid normal Carotids: no bruits Chest Chest palpation & inspection: no tenderness Resp Effort & Inspection: normal respiratory effort, no audible wheezes, not labored and no stridor Auscultation: no crackles, no rales, no rhonchi and no wheezes Cardio Jugular venous distension: no JVD Rate: regular rate, not bradycardic and not tachycardic Rhythm: regular rhythm Bruits: no carotid bruits Peripheral pulses: Peripheral pulses 2+ throughout GI Inspection: Yes normal to inspection, No abdominal wall ecchymosis and No visible herniation Palpation (GI): Soft to palpation, nontender, no guarding, not rigid and No hepatosplenomegaly present Auscultation: normoactive bowel sounds General: Yes no CVA tenderness Back/Spine/Pelvis Back: no CVA tenderness and No back tenderness Cervical Spine: cervical ROM normal Thoracic/Lumbar Spine: thoracic and lumbar spine normal to inspection, straight leg raise negative bilaterally, No thoraco-lumbar ROM limited and No lumbar spinal tenderness Skin Lesions: no lesions Rashes: no rashes Wounds: no wounds Neuro General: oriented to person, oriented to place, patient oriented x3, CN's II-XI intact bilaterally and No confusion Cranial nerves: Yes Equal, round and reactive pupils present and Yes Normal accommodation reflex present Cognition (Neuro): normal cognition Speech: No Abnormal speech present Gait exam (Neuro): Normal gait present Motor exam (neuro): 5/5 motor strength present throughout Extrem Right upper extremity: full ROM; no cyanosis Left upper extremity: full ROM; no cyanosis Right lower extremity: no edema Left lower extremity: no edema Psych Appearance: grossly normal Mental Status: mental status grossly normal Affect: normal affect Attitude: cooperative Thought process: Normal thought process present Coding Level of Care Code Est Pt Prev Care 18-39y(74859) Diagnoses Annual physical exam Z00.00 Mixed hyperlipidemia E78.2 Hyperlipidemia type: mixed hyperlipidemia Type 2 diabetes mellitus with hyperglycemia, without long-term current use of insulin E11.65 Diabetes mellitus correction insulin use: without correction use Diabetes mellitus complication status: with hyperglycemia MDD (major depressive disorder), recurrent episode, moderate F33.1 Allergic rhinitis due to other allergic trigger, unspecified seasonality J30.89 Allergic rhinitis trigger: other Allergic rhinitis seasonality: unspecified Class 2 obesity E66.812 Additional Codes PHQ-9 - 10294 - PHQ-9 Billing: Yes ([id number]) RENAY-7 Assessment Billing - RENAY-7 Assessment Tool: RENAY-7 Assessment 19669 ([id number]) Assessment & Plan Assessment & Plan (1) Annual physical exam: Code(s): Z00.00 - Encounter for general adult medical examination without abnormal findings Category: Medical Plan: As per HPI (2) Hyperlipidemia: Code(s): E78.5 - Hyperlipidemia, unspecified Category: Medical Qualifiers: Hyperlipidemia type: mixed hyperlipidemia Qualified Code(s): E78.2 - Mixed hyperlipidemia Plan: Patient's most recent lipid panel showing elevated total cholesterol and LDL. Will recheck fasting lipid panel and if LDL above 100 will consider starting low-dose statin therapy (3) Type 2 diabetes mellitus: Code(s): E11.9 - Type 2 diabetes mellitus without complications Category: Medical Qualifiers: Diabetes mellitus correction insulin use: without correction use Diabetes mellitus complication status: with hyperglycemia Qualified Code(s): E11.65 - Type 2 diabetes mellitus with hyperglycemia Plan: Patient's type 2 diabetes has been suboptimally controlled. Only checks his blood sugar from time to time and reports 120s to 130s. He reports he is consistent with the use of his Lantus on a daily basis. (4) MDD (major depressive disorder), recurrent episode, moderate: Code(s): F33.1 - Major depressive disorder, recurrent, moderate Category: Medical Plan: Patient's PHQ-9 score 0. He feels his depression is well controlled. Not speaking with a mental health therapist at this time. (5) Allergic rhinitis: Code(s): J30.9 - Allergic rhinitis, unspecified Category: Medical Qualifiers: Allergic rhinitis trigger: other Allergic rhinitis seasonality: unspecified Qualified Code(s): J30.89 - Other allergic rhinitis Plan: Patient continues to have allergy symptoms even with the use of [id number] allergy medication and nasal sprays.. Patient continues to follow ENT in his getting allergy injections (6) Class 2 obesity: Code(s): E66.812 - Obesity, class 2 Category: Medical Plan: Patient does understand his BMI is over 35 and work on being more physically active and adapting to better eating habits to reduce his weight. Has tried GLP 1 in the past though had intolerable GI side effects Orders: Orders Microalbumin, Random (w Creat) Today E11.65 - Type 2 diabetes mellitus with hyperglycemia Complete Blood Count no Diff Today E11.65 - Type 2 diabetes mellitus with hyperglycemia Comprehensive [place]. Panel Fast Today E11.65 - Type 2 diabetes mellitus with hyperglycemia Hemoglobin A1c Today E11.65 - Type 2 diabetes mellitus with hyperglycemia Medications: Refilled pen needle, diabetic (BD Ultra-Fine Krystal Pen Needle) As directed 50 ea 1RF E11.65 - Type 2 diabetes mellitus with hyperglycemia diclofenac sodium 1% apply to single elbow, wrist or hand; for hand includes palm/fingers/back of hand 2 grams topical QID 30 days 100 grams 1RF M77.12 - Lateral epicondylitis, left elbow Discontinued simethicone (Gas Relief (simethicone)) Discontinued Reason: Doctor's Order 80 mg PO TID-QID PRN 120 tabs 4RF abdominal distention
== END 2024-08-25 10:15 | disposition home or self-care (01) ==
PROVIDERS: PCP Physician Assistant; Visit Provider Physician Assistant
DX: Z00.00 Encounter for general adult medical examination without abnormal findings (principal); E78.2 Mixed hyperlipidemia; E11.65 Type 2 diabetes mellitus with hyperglycemia; F33.1 Major depressive disorder, recurrent, moderate; E66.812 Obesity, class 2; Z68.36 Body mass index [BMI] 36.0-36.9, adult; J30.89 Other allergic rhinitis

== ENCOUNTER → 2024-08-25 09:48 | Outpatient (BNVA) | payer OTHER, SELFPAY | PROVIDERS: PCP Physician Assistant; Visit Provider Physician Assistant | DX: Z00.00 Encounter for general adult medical examination without abnormal findings (principal); E78.2 Mixed hyperlipidemia; E11.65 Type 2 diabetes mellitus with hyperglycemia; F33.1 Major depressive disorder, recurrent, moderate; J30.89 Other allergic rhinitis; E66.812 Obesity, class 2; Z68.36 Body mass index [BMI] 36.0-36.9, adult; G47.33 Obstructive sleep apnea (adult) (pediatric); Z99.89 Dependence on other enabling machines and devices | CPT/HCPCS: 96127 ==

== ENCOUNTER 2025-06-01 08:22 | Outpatient (REF) | payer OTHER, SELFPAY ==
[2025-06-01 08:51] LABS: Hematocrit 47.0 % (42.0-52.0); Hemoglobin 15.6 g/dl (14.0-18.0); Mean Corpuscular HGB Conc 33.2 g/dl (31.0-36.0); Mean Corpuscular Hemoglobin 28.2 pg (27.0-33.0); Mean Corpuscular Volume 85.0 fL (80.0-98.0); NRBC Abs Auto 0.000 X10*3/uL (0.0-0.012); NRBC Pct Auto 0.0 /100WBC (0.0-0.2); Platelet Count 352 X10*3/uL (160-400); Red Blood Count 5.53 X10*6/uL (4.60-5.80); White Blood Count 9.3 X10*3/uL (4.8-10.8)
[2025-06-01 09:19] LABS: Alanine Aminotransferase 31 U/L (0-40); Albumin Level 4.4 g/dL (3.5-5.0); Alkaline Phosphatase 96 U/L (39-117); Anion Gap 11 (12-20); Aspartate Amino Transferase 21 U/L (5-37); Blood Urea Nitrogen 17 mg/dL (9-16); Calcium 9.3 mg/dL (8.4-10.2); Carbon Dioxide 27 mmol/L (22-29); Chloride 103 mmol/L (96-108); Estimated Glomerular Filt Rate > 60; Potassium 4.1 mmol/L (3.3-5.1); Sodium 137 mmol/L (135-145); Total Protein 7.4 g/dL (6.5-8.0)
== END 2025-06-01 08:23 | disposition home or self-care (01) ==
LOC: HO.LAB 08:22
PROVIDERS: PCP Physician Assistant; Visit Provider Physician Assistant
DX: E11.65 Type 2 diabetes mellitus with hyperglycemia (principal)
CPT/HCPCS: 36415; 80053; 83036; 85027

== ENCOUNTER 2025-06-02 12:05 | Outpatient (REF) | payer OTHER, SELFPAY ==
[2025-06-02 13:00] LABS: Microalbum/Creatinine Ratio Ur 7.6 ug/mg cr (<30)
== END 2025-06-02 12:06 | disposition home or self-care (01) ==
LOC: HO.LNP 12:05
PROVIDERS: Visit Provider Physician Assistant
DX: E11.65 Type 2 diabetes mellitus with hyperglycemia (principal)
CPT/HCPCS: 82043; 82570